=== PATIENT | male | born 1965 | race Caucasian/White ===

== ENCOUNTER 2018-10-27 09:59 | Emergency (ER) | payer BC ==
[~2018-10-27] VITALS: Ht 167.6 cm; Wt 83.9 kg
[2018-10-27 10:34] VITALS: BP 129/84
--- NOTE | 2018-10-27 10:56 | NUR ---
BIB SELF WITH C/O LEFT 1ST TOE PAIN, + SWELLING, - DISCHARGE, + REDNESS. PATIENT STATES PAIN OF 6/10 AT THIS TIME; VSS; PATIENT POSITIONED FOR COMFORT; HOB ELEVATED; BEDRAILS UP X1; BED DOWN. ER MD MADE AWARE OF PT STATUS.
--- NOTE | 2018-10-27 11:35 | NUR ---
Patient being evaluated by physician at bedside.
--- NOTE | 2018-10-27 12:16 | NUR ---
Patient discharged with v/s stable. Written and verbal after care instructions given and explained. Patient alert, oriented and verbalized understanding of instructions. Ambulatory with steady gait. All questions addressed prior to discharge. ID band removed. Patient advised to follow up with PMD. Rx of TRAMADOL, DOXYCYCLINE, MUPIROCIN given. Patient educated on indication of medication including possible reaction and side effects. Opportunity to ask questions provided and answered.
[2018-10-27 12:17] VITALS: BP 129/84
== END 2018-10-27 12:16 | disposition home or self-care (01) ==
LOC: MED 09:59
DX: L03.032 Cellulitis of left toe (principal); E11.9 Type 2 diabetes mellitus without complications; Z88.0 Allergy status to penicillin
CPT/HCPCS: 99283

== ENCOUNTER 2019-01-14 18:33 | Emergency (ER) | payer BC, OTHER ==
[~2019-01-14] VITALS: Ht 167.6 cm; Wt 80.4 kg
[2019-01-14 18:38] VITALS: BP 108/78
[2019-01-14] MEDS ORDERED: KETOROLAC 30 MG/ML VIAL IM ONE (21:00)
--- NOTE | 2019-01-14 21:23 | NUR ---
EMT TO APPLY MARIAA WRAP TO RT HAND/WRIST.
[2019-01-14 21:25] VITALS: BP 122/86
--- NOTE | 2019-01-14 21:25 | NUR ---
Patient discharged with v/s stable. Written and verbal after care instructions given and explained. Patient verbalized understanding. Ambulatory with steady gait. All questions addressed prior to discharge. Advised to follow up with PMD.
--- NOTE | 2019-01-14 21:26 | NUR ---
MARIAA WRAP PLACED ON PT R WRIST. +CSM
== END 2019-01-14 21:25 | disposition home or self-care (01) ==
LOC: MED 18:33
DX: S63.91XA Sprain of unspecified part of right wrist and hand, initial encounter (principal); S39.012A Strain of muscle, fascia and tendon of lower back, initial encounter; S29.012A Strain of muscle and tendon of back wall of thorax, initial encounter; E11.9 Type 2 diabetes mellitus without complications; Z88.0 Allergy status to penicillin; V89.2XXA Person injured in unspecified motor-vehicle accident, traffic, initial encounter; Y93.89 Activity, other specified; Y92.410 Unspecified street and highway as the place of occurrence of the external cause; Y99.8 Other external cause status
CPT/HCPCS: 73110; 96372; 99283; J1885

== ENCOUNTER 2019-07-24 23:05 | Emergency (ER) | payer OTHER ==
[~2019-07-24] VITALS: Ht 172.7 cm; Wt 75.7 kg
[2019-07-24 23:12] VITALS: BP 118/83
--- NOTE | 2019-07-24 23:28 | NUR ---
AMBULATES TO BED 11 WITH WEAK GAIT IN HUNCHED OVER POSITION. ABD GUARDING, GRIMACING NOTED. PT REFUSED TO USE WC. REPORT GIVEN TO CHAUNCEY RN. DR. NAJERA MADE AWARE OF BLOOD SUGAR.
--- NOTE | 2019-07-24 23:40 | NUR ---
53 YEAR OLD MALE COMPLAINS OF DULL ABDOMINAL PAIN 7/10 FOR THE PAST 2 DAYS. PATIENT STATES NAUSEA AND VOMITTING X 2 DAYS. PATIENT STATES UNABLE TO EAT OR DRINK, WELL WEIGHT LOSS. BOWEL SOUNDS ACTIVE X4, PAIN ON PALPATION ON UPPER ABDOMEN. PATIENT HAS HISTORY OF DIABETES, BS 492. PATIENT TAKES MEDICATIONS METFORMIN AND GLIPIZIDE. BED IN LOWEST POSITION, LOCKED, BED RAIL UPX1. AT BEDSIDE.
[2019-07-24] MEDS: ONDANSETRON 4 MG/2 ML VIAL IVP ONE (23:46)
[2019-07-24] MEDS: NACL 0.9% 1,000 ML IV ONE (23:47)
[2019-07-24] MEDS: KETOROLAC 30 MG/ML VIAL IVP ONE (23:51)
[2019-07-24 23:55] LABS: BASOPHILS # (AUTO) 0.1 K/uL (0.00-0.22); BASOPHILS % (AUTO) 1.3 % (0.0-2.0); EOSINOPHILS # (AUTO) 0.1 K/uL (0-0.4); HEMATOCRIT 51.7 % (36-52); MEAN CORPUSCULAR HEMOGLOBIN 31 pg (27-31); MEAN CORPUSCULAR HGB CONC 35 g/dL (33-37); MEAN CORPUSCULAR VOLUME 88.4 fL (80-94); MONOCYTES # (AUTO) 0.4 K/uL (0.8-1.0); MONOCYTES % (AUTO) 4.5 % (1.7-9.3); NEUTROPHILS # (AUTO) 8.2 K/uL (1.8-7.7); NEUTROPHILS % (AUTO) 83.2 % (42.2-75.2); PLATELET COUNT (AUTO) 189 K/uL (140-450); RED BLOOD CELL COUNT(AUTO) 5.85 MIL/uL (4.20-6.10); RED CELL DISTRIBUTION WIDTH 12.7 % (11.6-13.7); WHITE BLOOD COUNT (AUTO) 9.8 K/uL (4.8-10.8)
[2019-07-25 00:09] LABS: ANION GAP 12.5 (8-16); CARBON DIOXIDE 28.9 mmol/L (21-32); POTASSIUM 4.4 mmol/L (3.5-5.1); TOTAL BILIRUBIN 0.8 mg/dL (0.0-1.0)
--- NOTE | 2019-07-25 00:15 | NUR ---
PATIENT IS STILL IN PAIN AND NAUSEA AFTER MEDICATION ADMINISTRATION PREVIOUSLY, DR NAJERA MADE AWARE. PATIENT IS ALERT AND ORIENTED, BREATHING EVEN AND UNLABORED. WILL CONTINUE TO MONITOR.
[2019-07-25] MEDS: MORPHINE SULFATE 4 MG/ML SYR IVP ONE (00:43)
[2019-07-25] MEDS: INSULIN REGULAR, HUMAN 100 UNIT/ML VIAL IV ONE (00:45)
[2019-07-25] MEDS: NACL 0.9% 1,000 ML IV ONE (00:46)
[2019-07-25] MEDS: PROMETHAZINE 25 MG/ML VIAL IVP ONE (00:47)
[2019-07-25 01:21] VITALS: BP 118/83
--- NOTE | 2019-07-25 01:21 | NUR ---
Patient discharged with v/s stable. Written and verbal after care instructions ABOUT ABDOMINAL PAIN given and explained. Patient alert, oriented and verbalized understanding of instructions. Ambulatory with steady gait. All questions addressed prior to discharge. ID band removed. Patient advised to follow up with PMD. Rx of IMODIUM, CIPRO, MOTRIN, PHENERGAN, AND NORCO given. Patient educated on indication of medication including possible reaction and side effects. Opportunity to ask questions provided and answered. PATIENT HAS DRIVING HIM HOME
== END 2019-07-25 01:21 | disposition home or self-care (01) ==
LOC: MED 23:05
DX: R10.13 Epigastric pain (principal); R11.2 Nausea with vomiting, unspecified; R19.7 Diarrhea, unspecified; E11.65 Type 2 diabetes mellitus with hyperglycemia; Z88.0 Allergy status to penicillin; Z98.890 Other specified postprocedural states
CPT/HCPCS: 36415; 80053; 83690; 85025; 96361; 96374; 96375; 99283; J1815; J1885; J2270; J2405; J2550

== ENCOUNTER 2020-01-03 21:50 | Emergency (ER) | payer OTHER ==
[~2020-01-03] VITALS: Ht 172.7 cm; Wt 70.3 kg
--- NOTE | 2020-01-03 22:05 | NUR ---
EKG DONE AT BEDSIDE, SINUS TACHY AT 120. DR SWIFT MADE AWARE.
--- NOTE | 2020-01-03 22:05 | NUR ---
PT AMBULATED TO BED 11 WITH STEADY GAIT.
--- NOTE | 2020-01-03 22:05 | NUR ---
DR SWIFT AT BEDSIDE EVALUATING PT.
[2020-01-03 22:06] VITALS: BP 137/85
--- NOTE | 2020-01-03 22:09 | NUR ---
54M PRESENTS TO ER C/O STERNAL CHEST PAIN THAT RADIATES TO LT SHOULDER AND SOB THAT STARTED X 1 HOUR AGO. PT PLACED ON HAND FORMER HELPER AND PULSE OXIMETRY. NEGATIVE FOR COVID SCREENING. PMHX: DM ALLX: PCN
[2020-01-03] MEDS ORDERED: ONDANSETRON 4 MG/2 ML VIAL IVP ONE (22:10)
[2020-01-03] MEDS ORDERED: NACL 0.9% 1,000 ML IV ONE ×2 (22:10→23:25)
[2020-01-03] MEDS ORDERED: PANTOPRAZOLE 40 MG INJ VIAL IVP ONE (22:10)
[2020-01-03] MEDS ORDERED: KETOROLAC 30 MG/ML VIAL IVP ONE (22:10)
--- NOTE | 2020-01-03 22:16 | NUR ---
XRAY AT BEDSIDE.
[2020-01-03 23:04] LABS: BASOPHILS # (AUTO) 0.1 K/uL (0.00-0.22); BASOPHILS % (AUTO) 0.7 % (0.0-2.0); EOSINOPHILS # (AUTO) 0.1 K/uL (0-0.4); EOSINOPHILS % (AUTO) 0.6 % (0.0-4.0); HEMATOCRIT 46.5 % (36-52); HEMOGLOBIN 15.9 g/dL (12.0-18.0); LYMPHOCYTES % (AUTO) 6.7 % (20.5-51.1); MEAN CORPUSCULAR HEMOGLOBIN 30 pg (27-31); MEAN CORPUSCULAR HGB CONC 34 g/dL (33-37); MEAN CORPUSCULAR VOLUME 88.6 fL (80-94); MONOCYTES # (AUTO) 0.7 K/uL (0.8-1.0); MONOCYTES % (AUTO) 4.6 % (1.7-9.3); NEUTROPHILS # (AUTO) 13.7 K/uL (1.8-7.7); PLATELET COUNT (AUTO) 165 K/uL (140-450); RED BLOOD CELL COUNT(AUTO) 5.25 MIL/uL (4.20-6.10); RED CELL DISTRIBUTION WIDTH 12.3 % (11.6-13.7); WHITE BLOOD COUNT (AUTO) 15.7 K/uL (4.8-10.8)
[2020-01-03] MEDS ORDERED: MORPHINE SULFATE 2 MG/ML SYR ONE (23:17)
[2020-01-03 23:19] LABS: ALBUMIN 3.6 g/dL (3.4-5.0); ANION GAP 15.5 (8-16); CARBON DIOXIDE 28.3 mmol/L (21-32); CREATININE 1.2 mg/dL (0.6-1.3); POTASSIUM 3.8 mmol/L (3.5-5.1); TOTAL BILIRUBIN 0.4 mg/dL (0.0-1.0)
[2020-01-03 23:20] LABS: NEUTROPHILS % (AUTO) 87.4 % (42.2-75.2)
[2020-01-03] MEDS ORDERED: MORPHINE SULFATE 2 MG/ML SYR IVP ONE (23:20)
--- NOTE | 2020-01-03 23:23 | NUR ---
BP 169/91, DR SWIFT MADE AWARE
[2020-01-03 23:25] VITALS: BP 169/91
[2020-01-03] MEDS ORDERED: INSULIN REGULAR, HUMAN 100 UNIT/ML VIAL IVP ONE (23:25)
--- NOTE | 2020-01-03 23:29 | NUR ---
RBG 449. DR SWIFT MADE AWARE.
--- NOTE | 2020-01-03 23:40 | NUR ---
DR SWIFT AT BEDSIDE
--- NOTE | 2020-01-03 23:48 | NUR ---
Maribel herring in ED - 01/03/20 at 2349 by [facility] PT MEDICATED WITH INSULIN SUBQ.
--- NOTE | 2020-01-03 23:49 | NUR ---
PT MEDICATED WITH INSULIN IVP.
--- NOTE | 2020-01-04 00:43 | NUR ---
Patient discharged with v/s stable. Written and verbal after care instructions given and explained. Patient alert, oriented and verbalized understanding of instructions. Ambulatory with steady gait. All questions addressed prior to discharge. ID band removed. Patient advised to follow up with PMD regarding high blood sugar and prescription needs. Rx of tramadol given. Patient educated on indication of medication including possible reaction and side effects. Opportunity to ask questions provided and answered.
== END 2020-01-04 00:43 | disposition home or self-care (01) ==
LOC: MED 21:50
DX: R07.9 Chest pain, unspecified (principal); E11.65 Type 2 diabetes mellitus with hyperglycemia; Z88.0 Allergy status to penicillin
CPT/HCPCS: 36415; 71045; 80053; 84484; 85025; 93005; 96361; 96374; 96375; 99285; C9113; J1815; J1885; J2270; J2405; J7030; Q0092

== ENCOUNTER 2020-03-29 17:40 | Inpatient (IN) | payer OTHER ==
[~2020-03-29] VITALS: Ht 177.8 cm; Wt 69.9 kg
[2020-03-29] MEDS ORDERED: NACL 0.9% 1,000 ML IV ONE (17:50)
[2020-03-29 17:51] VITALS: BP 167/107
[2020-03-29 18:28] LABS: BASOPHILS # (AUTO) 0.1 K/uL (0.00-0.22); BASOPHILS % (AUTO) 1.1 % (0.0-2.0); EOSINOPHILS # (AUTO) 0.2 K/uL (0-0.4); HEMATOCRIT 47.7 % (36-52); HEMOGLOBIN 16.3 g/dL (12.0-18.0); LYMPHOCYTES # (AUTO) 1.7 K/uL (2.0-11.5); LYMPHOCYTES % (AUTO) 19.3 % (20.5-51.1); MEAN CORPUSCULAR HEMOGLOBIN 30 pg (27-31); MEAN CORPUSCULAR HGB CONC 34 g/dL (33-37); MEAN CORPUSCULAR VOLUME 88.5 fL (80-94); MONOCYTES # (AUTO) 0.7 K/uL (0.8-1.0); MONOCYTES % (AUTO) 7.5 % (1.7-9.3); NEUTROPHILS # (AUTO) 6.3 K/uL (1.8-7.7); NEUTROPHILS % (AUTO) 70.1 % (42.2-75.2); PLATELET COUNT (AUTO) 202 K/uL (140-450); RED BLOOD CELL COUNT(AUTO) 5.38 MIL/uL (4.20-6.10); RED CELL DISTRIBUTION WIDTH 12.8 % (11.6-13.7)
[2020-03-29 18:40] LABS: ALBUMIN 3.7 g/dL (3.4-5.0); ANION GAP 15.9 (8-16); CARBON DIOXIDE 25.5 mmol/L (21-32); CREATININE 1.3 mg/dL (0.6-1.3); POTASSIUM 4.4 mmol/L (3.5-5.1); TOTAL BILIRUBIN 0.4 mg/dL (0.0-1.0)
[2020-03-29] MEDS ORDERED: INSULIN REGULAR, HUMAN 100 UNIT/ML VIAL IVP ONE (18:40)
[2020-03-29] MEDS ORDERED: METF-1022 PO (19:20)
[2020-03-29] MEDS ORDERED: GLIP5TER PO (19:20)
[2020-03-29] MEDS ORDERED: MECLIZINE 25 MG TAB PO PRN (19:30)
[2020-03-29] MEDS ORDERED: KETOROLAC 30 MG/ML VIAL IVP ONE (19:30)
[2020-03-29] MEDS ORDERED: guaiFENesin DM 200/20 MG-10 ML 10 ML UDC PO PRN (19:30)
[2020-03-29] MEDS ORDERED: DOCUSATE SODIUM 100 MG GELCAP PO PRN (19:30)
[2020-03-29] MEDS ORDERED: POTASSIUM CHLORIDE 10 MEQ TABER PO PRN (19:30)
[2020-03-29] MEDS ORDERED: ZOLPIDEM 5 MG TAB PO PRN (19:30)
[2020-03-29] MEDS ORDERED: DEXTROSE 50% 50 ML SYR IVP PRN (19:30)
[2020-03-29] MEDS ORDERED: PANTOPRAZOLE 40 MG INJ VIAL IVP ONE (19:30)
[2020-03-29] MEDS ORDERED: ACETAMINOPHEN 325 MG TAB PO PRN (19:30)
[2020-03-29] MEDS ORDERED: ONDANSETRON 8 MG in NACL 0.9% 50 ML IV PRN (19:30)
[2020-03-29] MEDS ORDERED: ONDANSETRON 4 MG/2 ML VIAL IM/IVP PRN (19:30)
[2020-03-29 19:57] LABS: PROTHROMBIN TIME 10.3 secs (10.8-13.4)
[2020-03-29 20:08] LABS: CHOL/HDL RATIO 6.4 (1-4.5); FREE T4 (FREE THYROXINE) 1.25 ng/dL (0.76-1.46); MAGNESIUM 1.8 mg/dL (1.8-2.4); PHOSPHORUS 3.1 mg/dL (2.5-4.9); THYROID STIMULATING HORMONE 2.01 uIU/mL (0.34-3.74)
[2020-03-29 20:09] VITALS: BP 121/89
[2020-03-29] MEDS: INSULIN LANTUS 100 UNITS/ML 10 ML VIAL SUBQ SCH (20:09)
[2020-03-29 20:12] LABS: APPEARANCE,URINE CLEAR (CLEAR); BILIRUBIN,URINE NEGATIVE (NEGATIVE); BLOOD, URINE NEGATIVE (NEGATIVE); COLOR,URINE YELLOW (YELLOW); LEUKOCYTE ESTERASE ,URINE NEGATIVE (NEGATIVE); NITRITE, URINE NEGATIVE (NEGATIVE); PH,URINE 5.5 (5.0-9.0); UGLUCOSE 3+ (NEGATIVE)
[2020-03-29 20:20] LABS: BARBITURATE, URINE NEGATIVE ng/ml (NEG <=200); BENZODIAZEPINE, URINE NEGATIVE ng/mL (NEG <=200); CANNABINOID, URINE NEGATIVE ng/mL (NEG <=50); COCAINE, URINE NEGATIVE ng/mL (NEG <=300); OPIATE, URINE NEGATIVE ng/mL (NEG <=2000); PHENCYCLIDINE SCREEN,URINE NEGATIVE ng/mL (NEG <=25)
[2020-03-29] MEDS ORDERED: METFORMIN HCL 1000 MG PO SCH (21:00)
[2020-03-29] MEDS: BLOOD GLUCOSE MONITORING 1 DEV DEV FS SCH (21:42)
[2020-03-29] MEDS: NACL 0.9% 1,000 ML IV SCH (22:14)
[2020-03-29] MEDS: glipiZIDE ER 5 MG TABER PO SCH (22:20)
[2020-03-29] MEDS: metFORMIN 500 MG TAB PO SCH (22:20)
[2020-03-30] VITALS: BP 143/73
[2020-03-30] MEDS: HYDROcodone/APAP 7.5/325 MG 1 TAB PO PRN ×2 (00:41→10:25)
[2020-03-30 04:00] VITALS: BP 145/90
[2020-03-30] MEDS: NACL 0.9% 1,000 ML IV SCH ×2 (05:28→06:23)
[2020-03-30] MEDS: BLOOD GLUCOSE MONITORING 1 DEV DEV FS SCH ×4 (05:49→20:12)
[2020-03-30] MEDS: INSULIN LISPRO SLIDING SCALE 100 UNITS/ML VIAL SUBQ PRN ×2 (05:50→20:13)
[2020-03-30 08:00] VITALS: BP 150/99
[2020-03-30 08:01] LABS: BASOPHILS # (AUTO) 0.1 K/uL (0.00-0.22); BASOPHILS % (AUTO) 1.1 % (0.0-2.0); EOSINOPHILS # (AUTO) 0.2 K/uL (0-0.4); EOSINOPHILS % (AUTO) 2.4 % (0.0-4.0); HEMATOCRIT 41.9 % (36-52); HEMOGLOBIN 14.5 g/dL (12.0-18.0); LYMPHOCYTES # (AUTO) 2.3 K/uL (2.0-11.5); LYMPHOCYTES % (AUTO) 25.5 % (20.5-51.1); MEAN CORPUSCULAR HEMOGLOBIN 31 pg (27-31); MEAN CORPUSCULAR HGB CONC 35 g/dL (33-37); MEAN CORPUSCULAR VOLUME 88.5 fL (80-94); MONOCYTES # (AUTO) 0.6 K/uL (0.8-1.0); MONOCYTES % (AUTO) 6.2 % (1.7-9.3); NEUTROPHILS # (AUTO) 5.8 K/uL (1.8-7.7); NEUTROPHILS % (AUTO) 64.8 % (42.2-75.2); PLATELET COUNT (AUTO) 176 K/uL (140-450); RED BLOOD CELL COUNT(AUTO) 4.74 MIL/uL (4.20-6.10); RED CELL DISTRIBUTION WIDTH 12.9 % (11.6-13.7)
[2020-03-30 08:52] LABS: ANION GAP 15.1 (8-16); CARBON DIOXIDE 21.9 mmol/L (21-32)
[2020-03-30] MEDS: ATORVASTATIN 20 MG TAB PO SCH (09:01)
[2020-03-30] MEDS: ASPIRIN 81 MG TAB.CHEW PO SCH (09:01)
[2020-03-30] MEDS: metFORMIN 500 MG TAB PO SCH ×2 (09:01→20:10)
[2020-03-30] MEDS: glipiZIDE ER 5 MG TABER PO SCH ×2 (09:01→20:11)
[2020-03-30] MEDS: PANTOPRAZOLE 40 MG TABEC PO SCH (09:02)
[2020-03-30 12:00] VITALS: BP 147/96
[2020-03-30 16:00] VITALS: BP 154/87
[2020-03-30] MEDS: INSULIN LANTUS 100 UNITS/ML 10 ML VIAL SUBQ SCH (17:18)
[2020-03-30 20:00] VITALS: BP 121/75
[2020-03-31] VITALS: BP 137/80
[2020-03-31] MEDS: NACL 0.9% 1,000 ML IV SCH ×2 (01:28→07:36)
[2020-03-31 04:00] VITALS: BP 135/89
[2020-03-31 06:32] LABS: BASOPHILS # (AUTO) 0.1 K/uL (0.00-0.22); BASOPHILS % (AUTO) 0.8 % (0.0-2.0); EOSINOPHILS # (AUTO) 0.2 K/uL (0-0.4); EOSINOPHILS % (AUTO) 1.9 % (0.0-4.0); HEMATOCRIT 45.4 % (36-52); HEMOGLOBIN 15.7 g/dL (12.0-18.0); LYMPHOCYTES # (AUTO) 1.5 K/uL (2.0-11.5); LYMPHOCYTES % (AUTO) 17.4 % (20.5-51.1); MEAN CORPUSCULAR HEMOGLOBIN 31 pg (27-31); MEAN CORPUSCULAR HGB CONC 35 g/dL (33-37); MEAN CORPUSCULAR VOLUME 88.3 fL (80-94); MONOCYTES # (AUTO) 0.4 K/uL (0.8-1.0); MONOCYTES % (AUTO) 5.1 % (1.7-9.3); NEUTROPHILS # (AUTO) 6.6 K/uL (1.8-7.7); NEUTROPHILS % (AUTO) 74.8 % (42.2-75.2); PLATELET COUNT (AUTO) 190 K/uL (140-450); RED BLOOD CELL COUNT(AUTO) 5.14 MIL/uL (4.20-6.10); RED CELL DISTRIBUTION WIDTH 12.7 % (11.6-13.7); WHITE BLOOD COUNT (AUTO) 8.9 K/uL (4.8-10.8)
[2020-03-31] MEDS: BLOOD GLUCOSE MONITORING 1 DEV DEV FS SCH ×2 (06:36→12:01)
[2020-03-31] MEDS: INSULIN LISPRO SLIDING SCALE 100 UNITS/ML VIAL SUBQ PRN ×2 (06:37→12:04)
[2020-03-31 06:53] LABS: ANION GAP 14.2 (8-16); CARBON DIOXIDE 26.9 mmol/L (21-32); CREATININE 0.8 mg/dL (0.6-1.3); POTASSIUM 4.1 mmol/L (3.5-5.1)
[2020-03-31 08:00] VITALS: BP 136/78
[2020-03-31] MEDS: PANTOPRAZOLE 40 MG TABEC PO SCH (09:02)
[2020-03-31] MEDS: glipiZIDE ER 5 MG TABER PO SCH (09:02)
[2020-03-31] MEDS: ASPIRIN 81 MG TAB.CHEW PO SCH (09:03)
[2020-03-31] MEDS: ATORVASTATIN 20 MG TAB PO SCH (09:03)
[2020-03-31] MEDS: metFORMIN 500 MG TAB PO SCH (09:06)
[2020-03-31 10:07] LABS: T4 (THYROXINE) 7.9 ug/dL (4.5-12.0)
[2020-03-31] MEDS ORDERED: GLIP5TAB13 PO (11:23)
[2020-03-31] MEDS ORDERED: METF-1022 PO (11:23)
[2020-03-31] MEDS ORDERED: ATOR40TA PO (13:40)
[2020-03-31] MEDS ORDERED: ASPI-1822 PO (13:40)
== END 2020-03-31 15:11 | disposition home or self-care (01) | DRG 637 ==
LOC: MED 17:40 → MTU 19:14
PROVIDERS: ADMIT Family Medicine; ATTEND Family Medicine
DX: E11.00 Type 2 diabetes mellitus with hyperosmolarity without nonketotic hyperglycemic-hyperosmolar coma (NKHHC) (principal); G93.41 Metabolic encephalopathy; E87.1 Hypo-osmolality and hyponatremia; I10 Essential (primary) hypertension; E11.51 Type 2 diabetes mellitus with diabetic peripheral angiopathy without gangrene; E78.2 Mixed hyperlipidemia; E86.0 Dehydration; Z88.0 Allergy status to penicillin; Z79.899 Other long term (current) drug therapy; Z79.84 Long term (current) use of oral hypoglycemic drugs; Z91.14 Patient's other noncompliance with medication regimen; Z91.19 Patient's noncompliance with other medical treatment and regimen; Z56.0 Unemployment, unspecified
CPT/HCPCS: 36415; 70450; 71045; 80048; 80053; 80305; 81003; 82140; 82150; 82948; 83036; 83690; 83735; 83880; 84100; 84436; 84439; 84443; 84479; 84484; 85025; 85610; 85730; 87081; 93005; 93880; 93925; 93970; 96361; 96374; 96375; 97110; 97112; 97116; 97161-GP; 97530; 99285; C9113; J1815; J1885; J2405; J7030; Q0092

== ENCOUNTER 2020-06-14 15:46 | Inpatient (IN) | payer OTHER, SELFPAY ==
[~2020-06-14] VITALS: Ht 172.7 cm; Wt 68.0 kg
[~2020-06-14 15:46] MED LIST: ASPI-1822 PO; ATOR40TA PO; GLIP5TAB13 PO; METF-1022 PO
[2020-06-14 16:01] VITALS: BP 127/79
[2020-06-14] MEDS ORDERED: ONDANSETRON 4 MG/2 ML VIAL IVP STA (16:01)
[2020-06-14] MEDS ORDERED: NACL 0.9% 1,000 ML IV ONE (16:05)
[2020-06-14] MEDS ORDERED: MORPHINE SULFATE 4 MG/ML SYR IVP ONE (16:05)
--- NOTE | 2020-06-14 16:15 | NUR ---
54 YEAR OLD MALE COMPLAINS OF NAUSEA AND VOMITTING X 5 DAYS. PT DENIES BLOOD IN VOMIT. PT DENIES DIARRHEA. PT LETHARGIC AND WEAK. PT AOX4, BREATHING EVEN AND UNLABORED, SKIN WARM AND DRY. BED IN LOWEST POSITION, LOCKED, BED RAIL UPX1. PMH - DM2 ALLERGIES - PCN
[2020-06-14 16:32] LABS: BASOPHILS # (AUTO) 0.1 K/uL (0.00-0.22); BASOPHILS % (AUTO) 0.6 % (0.0-2.0); HEMATOCRIT 45.6 % (36-52); HEMOGLOBIN 15.9 g/dL (12.0-18.0); LYMPHOCYTES # (AUTO) 1.3 K/uL (2.0-11.5); LYMPHOCYTES % (AUTO) 11.3 % (20.5-51.1); MEAN CORPUSCULAR HEMOGLOBIN 30 pg (27-31); MEAN CORPUSCULAR HGB CONC 35 g/dL (33-37); MONOCYTES # (AUTO) 0.9 K/uL (0.8-1.0); MONOCYTES % (AUTO) 7.6 % (1.7-9.3); NEUTROPHILS # (AUTO) 9.5 K/uL (1.8-7.7); NEUTROPHILS % (AUTO) 80.5 % (42.2-75.2); PLATELET COUNT (AUTO) 147 K/uL (140-450); RED CELL DISTRIBUTION WIDTH 12.6 % (11.6-13.7); WHITE BLOOD COUNT (AUTO) 11.7 K/uL (4.8-10.8)
[2020-06-14 16:55] LABS: ALBUMIN 3.1 g/dL (3.4-5.0); ANION GAP 14.7 (8-16); CARBON DIOXIDE 25.4 mmol/L (21-32); CREATININE 1.1 mg/dL (0.6-1.3); POTASSIUM 4.1 mmol/L (3.5-5.1); TOTAL BILIRUBIN 0.6 mg/dL (0.0-1.0)
[2020-06-14 17:38] LABS: APPEARANCE,URINE CLEAR (CLEAR); BILIRUBIN,URINE NEGATIVE (NEGATIVE); BLOOD, URINE NEGATIVE (NEGATIVE); COLOR,URINE YELLOW (YELLOW); LEUKOCYTE ESTERASE ,URINE NEGATIVE (NEGATIVE); NITRITE, URINE NEGATIVE (NEGATIVE); UGLUCOSE 3+ (NEGATIVE)
--- NOTE | 2020-06-14 18:00 | NUR ---
PT LYING IN BED AWAKE, ALERT, RESPONSIVE. RR EVEN AND UNLABORE. WILL CONT TO MONITOR.
[2020-06-14 18:52] LABS: ANION GAP 12.7 (8-16); CARBON DIOXIDE 25.3 mmol/L (21-32)
--- NOTE | 2020-06-14 20:00 | NUR ---
PT LYING IN BED, EASY TO AROUSE. NO ACUTE DISTERESS. WILL FOLLOW UP
--- NOTE | 2020-06-14 21:33 | NUR ---
REPORT GIVEN TO ANA ROSA AT THIS TIME.
--- NOTE | 2020-06-14 21:54 | NUR ---
TRANSFERRED VIA EMT AT THIS TIME.
--- NOTE | 2020-06-14 21:54 | NUR ---
Patient will be admitted to care of NATALIIA. Admited to MED SURG. Will go to [facility] A. Belongings list completed. Report to ANA ROSA HARRISON.
[2020-06-14 21:55] VITALS: BP 157/95
--- NOTE | 2020-06-14 21:55 | NUR ---
ADMITTED A 54M FROM ER. CAME BY WHEELCHAIR DUE TO ABDOMINAL PAIN WITH NAUSEA/VOMITING X5-6 DAYS RELATED TO DX: HYPONATREMIA AND DEHYDRATION . PT IS AWAKE, ALERT AND ORIENTED X4. MED SURG PT. DENIES ANY DISCOMFORT AT THIS TIME. ORIENTED TO HOSPITAL ROUTINES . PLAN OF CARE DISCUSSED AND VERBALIZED UNDERSTANDING. HS HL ON THE RT AC G#20 .CLEAR AND PATENT. FREQ ROUNDS NEEDED. BED ON LOWEST POSITION. SIDE RAILS UP X2. CALL LIGHT AND URINAL PACED WITHIN REACH. WILL CONTINUE TO MONITOR.
[2020-06-14] MEDS: NACL 0.9% 1,000 ML IV SCH (22:40)
[2020-06-14] MEDS ORDERED: SODIUM PHOSPHATE 118 ML ENEM RC PRN (23:00)
[2020-06-14] MEDS ORDERED: DEXTROSE 50% 50 ML SYR IVP PRN (23:00)
--- NOTE | 2020-06-15 | NUR ---
VITAL SIGNS ARE WITHIN NORMAL LIMITS. ALL NEEDS MET. CALL LIGHT IS WITHIN REACH. WILL CONTINUE TO MONITOR.
[2020-06-15] MEDS ORDERED: ONDANSETRON 4 MG/2 ML VIAL IVP PRN (02:40)
--- NOTE | 2020-06-15 05:00 | NUR ---
PT IS SLEEPING COMFORTABLY IN BED WITH EYES CLOSED. CHEST RISE AND FALL NOTED. CALL LIGHT IS WITHIN REACH. WILL CONTINUE TO MONITOR.
[2020-06-15] MEDS ORDERED: MORPHINE SULFATE 2 MG/ML SYR IVP PRN ×2 (05:20→07:35)
[2020-06-15] MEDS ORDERED: HYDROcodone/APAP 5/325 MG 1 TAB TAB PO PRN ×2 (05:20→07:35)
[2020-06-15 06:03] VITALS: BP 142/85
[2020-06-15] MEDS: BLOOD GLUCOSE MONITORING 1 DEV DEV FS SCH ×4 (06:56→20:02)
[2020-06-15] MEDS: INSULIN LISPRO SLIDING SCALE 100 UNITS/ML VIAL SUBQ PRN ×2 (06:58→20:55)
[2020-06-15] MEDS: NACL 0.9% 1,000 ML IV SCH ×2 (07:10→17:18)
--- NOTE | 2020-06-15 07:10 | NUR ---
RECEIVED REPORT FROM LANDMEN NURSE FOR CONTINUITY OF CARE. A&OX4. WITH NO C/O PAIN, ON ROOM AIR, NO SOB. SKIN IS INTACT. WITH IV RAC 20G RUNNING NS AT 100 ML PER HOUR PER ORDER. PT IS AMBULATORY. SAFETY PRECAUTIONS IN PLACE. CALL LIGHT IS WITHIN REACH. WILL CONTINUE TO MONITOR
[2020-06-15] MEDS ORDERED: ACETAMINOPHEN 325 MG TAB PO PRN (07:35)
[2020-06-15] MEDS ORDERED: LORazepam 2 MG/ML VIAL IM/IVP PRN (07:35)
[2020-06-15] MEDS ORDERED: ONDANSETRON 4 MG/2 ML VIAL IM/IVP PRN (07:35)
[2020-06-15] MEDS ORDERED: ZOLPIDEM 5 MG TAB PO PRN (07:35)
[2020-06-15] MEDS ORDERED: DOCUSATE SODIUM 100 MG GELCAP PO PRN (07:35)
[2020-06-15] MEDS ORDERED: POTASSIUM CHLORIDE 10 MEQ TABER PO PRN (07:40)
[2020-06-15] MEDS ORDERED: MAG SULF 2000 MG/WATER PREMIX 50 ML IV PRN (07:40)
[2020-06-15 08:17] LABS: ANION GAP 15.7 (8-16); CARBON DIOXIDE 24.3 mmol/L (21-32); CREATININE 0.9 mg/dL (0.6-1.3)
[2020-06-15 08:21] LABS: PROTHROMBIN TIME 11.3 secs (10.8-13.4)
[2020-06-15 08:32] LABS: CHOL/HDL RATIO 4.2 (1-4.5); PHOSPHORUS 2.3 mg/dL (2.5-4.9); THYROID STIMULATING HORMONE 0.62 uIU/mL (0.34-3.74)
--- NOTE | 2020-06-15 09:15 | NUR ---
DUE MORNING MEDS GIVEN ORDERED
--- NOTE | 2020-06-15 09:30 | NUR ---
COVID ANTIGEN ANDRZEJ SPECIMEN TAKEN AND SENT TO LAB
--- NOTE | 2020-06-15 10:00 | NUR ---
PER MANFRED FROM LAB, RAPID COVID TEST IS POSITIVE. MD NOTIFIED. CHARGE NURSE NOTIFIED
[2020-06-15] MEDS ORDERED: ALBUTEROL HFA MDI 90 MCG/ACTUATION 8 GM INH PRN (10:10)
--- NOTE | 2020-06-15 10:15 | NUR ---
MOVED PT TO ROOM 113
[2020-06-15] MEDS ORDERED: AZITHROMYCIN 250 MG TAB PO SCH (10:30)
[2020-06-15] MEDS ORDERED: SODIUM PHOSPHATE 15 MMOLE in NACL 0.9% 250 ML IV SCH (10:30)
--- NOTE | 2020-06-15 10:31 | NUR ---
DISCHARGE PLANNING: THIS IS A 54 Y/O MALE PATIENT FROM HOME, WHO CAME IN DUE TO NAUSEA, VOMITING, FATIGUE. PAST MEDICAL HISTORY INCLUDE DM, HYPERLIPIDEMIA. INITIAL DIAGNOSIS OF HYPONATREMIA AND DEHYDRATION. CURRENT LABS INCLUDE WBC 11.7, H/H 15.9/45.6, NA/K 128/4.0, BUN/CREA 16.0/0.9PHOS 2.3. COVID TEST POSITIVE. ON DECADRON, ROCEPHIN, AZITHROMYCIN. ON ROOM AIR, O2 SAT 93%. PULMO, ID AND NEPHRO CONSULTS IN PLACE. DC PLAN PENDING ON PATIENT'S RESPONSE TO TREATMENT. Addendum: 06/16/20 at 1157 by Alyssia Powell CM DC PLANNING: SEEN BY WRAPPER COUNTER DR LYON CONTINUE WITH IVF ,ENCOURAGE PATIENT TO INCREASE ORAL HYDRATION, NA LEVEL 127 CONTINUE IVF, ON DECADRON FOR COVID AND PNEUMONIA. SEEN BY PULMO AND JOSE. CONTINUE CURRENT THERAPY DC PLAN TO GO HOME WHEN STABLE. CM TO FOLLOW
--- NOTE | 2020-06-15 11:00 | NUR ---
WITH EPISODE OF VOMITING AND DIARRHEA. ZOFRAN GIVEN ASA ORDERED
--- NOTE | 2020-06-15 12:00 | NUR ---
WITH TEMP OF 100.8, COOLING MEASURES RENDERED. TYLENOL PRN GIVEN
--- NOTE | 2020-06-15 12:30 | NUR ---
PER RT, O2SAT 87% ON ROOM AIR. PLACED ON 2L O2 NC. O2SAT 98%
--- NOTE | 2020-06-15 12:46 | NUR ---
PATIENT HAS BEEN SCREENED AND CATEGORIZED HIGH NUTRITION RISK. PATIENT WILL BE SEEN WITHIN 1-2 DAYS OF ADMISSION. 06/15/[address]
--- NOTE | 2020-06-15 15:30 | NUR ---
PT RESTING IN BED. NO C/O PAIN, NO SOB
[2020-06-15 16:00] VITALS: BP 143/92
--- NOTE | 2020-06-15 16:00 | NUR ---
06/15/2020 RD INITIAL ASSESSMENT COMPLETED PLEASE REFER TO NUTRITION ASSESSMENT UNDER CARE ACTIVITY FOR ESTIMATED NUTRITIONAL NEEDS. ADVANCE DIET ONCE PT ABLE TO TOLERATE PO INTAKE TO [address] TO FOLLOW-UP IN 2-3 DAYS PATIENT IS HIGH RISK. PERLA SANTIAGO, RD
[2020-06-15] MEDS: glipiZIDE 5 MG TAB PO SCH (17:18)
[2020-06-15] MEDS: metFORMIN 500 MG TAB PO SCH (17:18)
--- NOTE | 2020-06-15 17:42 | NUR ---
BLOOD SUGAR 154. COVERAGE GIVEN. NO C/O PAIN, NO SOB, O2SAT 98% ON 2L
--- NOTE | 2020-06-15 18:37 | NUR ---
PT RESTING IN BED. ABLE TO MAKE NEEDS KNOWN. RESPIRATIONS EVEN AND UNLABORED WITH NO SOB OR RESPIRATORY DISTRESS. ON 2L NC
--- NOTE | 2020-06-15 19:20 | NUR ---
RECEIVED REPORT FROM JO RNRODRÍGUEZ. PT AOX4 ON 2L NC, O2 SAT 94%. NO S/S RESPIRATORY DISTRESS. NO C/O PAIN AT THIS TIME. DENIES NAUSEA AND VOMITING. IV SITE RAC 20G, PATENT AND INTACT, INFUSING IVF ORDERED. SAFETY MEASURES IN PLACE. CALL LIGHT WITHIN REACH. WILL CONTINUE TO MONITOR
[2020-06-15] MEDS: ZINC SULF 220 MG CAP PO SCH (21:00)
[2020-06-15] MEDS ORDERED: METFORMIN HCL 1000 MG PO SCH (21:00)
--- NOTE | 2020-06-15 21:07 | NUR ---
ADMINISTERED SCHEDULED MEDS. GAVE 2 UNITS INSULIN SUBQ FOR PT BLOOD SUGAR 193 PER SLIDING SCALE. PT TOLERATED WELL. WILL CONTINUE TO MONITOR
--- NOTE | 2020-06-15 23:10 | NUR ---
PT ASLEEP IN BED. O2 SAT 97%. RESPIRATIONS EVEN AND UNLABORED. WILL CONTINUE TO MONITOR
[2020-06-16] VITALS: BP 123/78
--- NOTE | 2020-06-16 01:20 | NUR ---
PT ASLEEP IN BED. O2 SAT 94%. NO DISTRESS NOTED. WILL CONTINUE TO MONITOR
--- NOTE | 2020-06-16 03:25 | NUR ---
PT ASLEEP IN BED COMFORTABLY. NO DISTRESS NOTED. WILL CONTINUE TO MONITOR
[2020-06-16] MEDS: NACL 0.9% 1,000 ML IV SCH ×3 (03:32→23:10)
[2020-06-16] MEDS ORDERED: ACETAMINOPHEN 325 MG TAB PO PRN (05:10)
--- NOTE | 2020-06-16 06:00 | NUR ---
PT VOMITING TO BAG, REFUSED PRN ZOFRAN. NO C/O PAIN, NO SOB. WILL CONTINUE TO MONITOR
[2020-06-16] MEDS: glipiZIDE 5 MG TAB PO SCH ×2 (06:07→16:20)
[2020-06-16] MEDS: INSULIN LISPRO SLIDING SCALE 100 UNITS/ML VIAL SUBQ PRN ×4 (06:21→21:33)
[2020-06-16] MEDS: BLOOD GLUCOSE MONITORING 1 DEV DEV FS SCH ×4 (06:36→21:30)
--- NOTE | 2020-06-16 07:09 | NUR ---
ENDORSED PT TO DAY RN FOR CONTINUITY OF CARE. PT IS IN STABLE CONDITION.
--- NOTE | 2020-06-16 07:10 | NUR ---
RECEIVED REPORT FROM NIGHT NURSE PATIENT IS AAOX4 ON ROOM AIR, [facility] DIET, AMBULATORY WITH ASSIST, SKIN INTACT AND HAD A DIARRHEA LAST NIGHT, STILL WITH NAUSEA AND VOMITING NOTED BY NIGHT NURSE.IV SITES INTACT ON RIGHT AC, SAFETY MEASURES IN PLACE AND CALL LIGHT WITHIN REACH. WILL CONTINUE TO MONITOR.
[2020-06-16 07:12] LABS: BASOPHILS % (AUTO) 0.4 % (0.0-2.0); HEMOGLOBIN 14.8 g/dL (12.0-18.0); LYMPHOCYTES # (AUTO) 0.9 K/uL (2.0-11.5); LYMPHOCYTES % (AUTO) 9.1 % (20.5-51.1); MEAN CORPUSCULAR HEMOGLOBIN 30 pg (27-31); MEAN CORPUSCULAR HGB CONC 35 g/dL (33-37); MEAN CORPUSCULAR VOLUME 86.4 fL (80-94); MONOCYTES # (AUTO) 0.8 K/uL (0.8-1.0); MONOCYTES % (AUTO) 8.5 % (1.7-9.3); PLATELET COUNT (AUTO) 149 K/uL (140-450); RED BLOOD CELL COUNT(AUTO) 4.87 MIL/uL (4.20-6.10); RED CELL DISTRIBUTION WIDTH 12.3 % (11.6-13.7); WHITE BLOOD COUNT (AUTO) 9.8 K/uL (4.8-10.8)
[2020-06-16 07:14] LABS: ALBUMIN 2.7 g/dL (3.4-5.0); ANION GAP 14.5 (8-16); CARBON DIOXIDE 24.5 mmol/L (21-32); CREATININE 0.8 mg/dL (0.6-1.3); MAGNESIUM 1.8 mg/dL (1.8-2.4); PHOSPHORUS 2.8 mg/dL (2.5-4.9); TOTAL BILIRUBIN 0.6 mg/dL (0.0-1.0)
[2020-06-16 08:00] VITALS: BP 133/77
[2020-06-16 08:09] LABS: T4 (THYROXINE) 8.5 ug/dL (4.5-12.0)
--- NOTE | 2020-06-16 08:33 | NUR ---
Rec'd pt on RA, SPO2 96%, no signs of resp distress noted at this time, pt awake. Will continue to monitor.
[2020-06-16] MEDS: VITAMIN D 400 IU TAB PO SCH (08:49)
[2020-06-16] MEDS: ASCORBIC ACID 500 MG TAB PO SCH (08:50)
[2020-06-16] MEDS: metFORMIN 500 MG TAB PO SCH ×2 (08:50→16:21)
[2020-06-16] MEDS: ZINC SULF 220 MG CAP PO SCH ×2 (08:50→21:06)
[2020-06-16] MEDS: ATORVASTATIN 20 MG TAB PO SCH (08:51)
[2020-06-16] MEDS: ASPIRIN 81 MG TAB.CHEW PO SCH (08:51)
[2020-06-16] MEDS: DEXAMETHASONE 10 MG/ML VIAL IVP SCH (08:54)
[2020-06-16] MEDS ORDERED: AZITHROMYCIN 250 MG TAB PO SCH (09:00)
--- NOTE | 2020-06-16 09:00 | NUR ---
MEDICATION DUE GIVEN AND CHECK VITAL SIGNS PRIOR TO MEDICATION BP 133/77 IN 114.NO SIGNS OF DISTRESS NOTED AND DENIES PAIN. SAFETY MEASURES IN PLACE AND CALL LIGHT WITHIN REACH. WILL CONTINUE TO MONITOR.
--- NOTE | 2020-06-16 11:30 | NUR ---
BLOOD SUGAR MONITORING 167 MG/DL AND CHECK VITAL SIGNS. PATIENT IS SLEEPING NO DISTRESS NOTED.
--- NOTE | 2020-06-16 11:44 | NUR ---
SOCIAL WORK NOTE: Patient's Orientation Unable To Assess Information Provided By FREDI RYAN - Comments SW WAS UNABLE TO MEET PATIENT AT BEDSIDE. SW CALLED PATIENT'S ROOM PHONE AND PATIENT DID NOT ANSWER. SW CONTACTED PATIENT'S TO COMPLETE ASSESSMENT. Vortex Operator, Realtionship and Phone Number FREDI SANCHEZ [phone] [facility] Power of [place] Se[employer] No Does Patient Have a POLST No Identifying Problems No Social Work Triggers Is A Social Work Consult Needed No Mandate Report Filed No Explanation Of Identifying Problems PATIENT IS A 54-YEAR-OLD MALE ADMITTED FOR HYPONATREMIA AND DEHYDRATION. PATIENT HAS PMHX OF DIABETES AND HYPERTENSION. Admitted From Home Pre-Admission Level Of Functioning Status Independent/Ambulatory Prior Resources/Services Used In Last 12 Months No Prior Resources Used Prior DME No Prior DME Used Dialysis Comments N/A Living Situation Lives With Family House Patient Had Caregiver No Home Support No Caregiver Issues Financial Issues No Known Financial Issue Referral To The Financial Counselor Needed No Factors/Needs No D/C Needs Identified Explanation And Or Other Factors Affecting/Possible DC Needs PATIENT'S STATED THAT SHE WILL COORDINATE TRANSPORTATION AT TIME OF DISCHARGE. Pt/Rep Participated In Discharge Plan Yes Patient/Family Agress With Discharge Plan Yes Discharge Plan Comments TENTATIVE DISCHARGE PLAN IS FOR PATIENT TO RETURN HOME. DC Plan Status Initiated
--- NOTE | 2020-06-16 13:00 | NUR ---
MADE ROUNDS AT THIS TIME PATIENT IS SLEEPING AND DON"T WANT TO BE DISTURBED.'
[2020-06-16 16:00] VITALS: BP 123/73
--- NOTE | 2020-06-16 17:21 | NUR ---
PATIENT IS COVID 19 PCR IS POSITIVE.
--- NOTE | 2020-06-16 19:22 | NUR ---
ENDORSED TO NIGHT NURSE FOR CONTINUITY OF CARE. PT IS STABLE.
--- NOTE | 2020-06-16 19:25 | NUR ---
RECEIVED REPORT FROM DAY RN, PT IS AAOX4, RESTING COMFORTABLY IN BED, NO ACUTE DISTRESS, NO SOB NOTED. DENIES PAIN OR DISCOMFORT AT THIS TIME. PT HAS IV LINE ON RAC 20G, PATENT AND INTACT, INFUSING IVF NS @ 100CC/HR. BOWEL SOUND PRESENT X4 QUADRANTS. NO C/O NAUSEA/VOMITING AT THIS TIME. SKIN DRY AND WARM TO TOUCH. SAFETY MEASURES IN PLACED. CALL LIGHT WITHIN REACH. WILL CONTINUE TO MONITOR.
--- NOTE | 2020-06-16 19:45 | NUR ---
RECEIVED REPORT FROM AM SHIFT. PT SEEN AND ASSESSED. PT IS ON ROOM AIR WITH SPO2 OF 97%. . AUSCULTATION REVEALS BILATERAL RALES BREATH SOUNDS. PT IS IN NO APPARENT RESPIRATORY DISTRESS AT THIS TIME. PRN TX NOT INDICATED AT THIS TIME. WILL CONTINUE TO MONITOR PT.
--- NOTE | 2020-06-16 21:30 | NUR ---
DUE MEDS GIVEN ORDERED, TOLERATED WELL. BLOOD SUGAR CHECKED-272 MG/DL GIVEN 6UNITS OF INSULIN PER ORDER. WILL CONTINUE TO MONITOR.
--- NOTE | 2020-06-16 23:30 | NUR ---
FREQ ROUND DONE, PT IS ASLEEP IN BED COMFORTABLY. NO APPARENT DISTRESS, VS STABLE. AFEBRILE. SATTING 96% ON ROOM AIR. SAFETY MEASUIRES IN PLACED. CALL LIGHT WITHIN REACH. WILL CONTINUE TO MONITOR.
[2020-06-17] VITALS: BP 136/89
--- NOTE | 2020-06-17 01:30 | NUR ---
CHECKED ON PT. SLEEPING COMFORTABLY IN BED. NO APPARENT DISTRESS, NO SOB. SAFETY MEASURES IN PLACED. WILL CONTINUE TO MONITOR.
--- NOTE | 2020-06-17 03:30 | NUR ---
PT ON BED RESTING, ASKED NURSE TO BRING HIM SOME ICED WATER. KEPT COMFORTABLE. SAFETY MEASURES IN PLACED. CALL LIGHT WITHIN REACH. WILL CONTINUE TO MONITOR.
--- NOTE | 2020-06-17 05:30 | NUR ---
PT IS ASLEEP IN BED, REMAINS IN STABLE CONDITION WITHOUT ANY DISTRESS OR SOB NOTED.
[2020-06-17] MEDS: BLOOD GLUCOSE MONITORING 1 DEV DEV FS SCH ×2 (06:50→12:18)
[2020-06-17] MEDS: glipiZIDE 5 MG TAB PO SCH (06:50)
--- NOTE | 2020-06-17 06:50 | NUR ---
BLOOD SUGAR CHECKED-135, NO INSULIN COVERAGE NEEDED. WILL CONTINUE TO MONITOR.
--- NOTE | 2020-06-17 07:20 | NUR ---
ENDORSED TO AM NURSE IN STABLE CONDITION FOR CONTINUITY OF CARE.
--- NOTE | 2020-06-17 07:21 | NUR ---
RECEIVED ENDORSEMENT FROM REAL ESTATE OPERATIONS MANAGER, AWAKE, ALERT, ORIENTEDX4, BREATHING SPONTANEOUSLY AT ROOM AIR, NON LABORED NOTED. WITH ONGOING IV FLUID WITH 0.9%NS AT 60ML/HOUR INFUSING AT RT AC G20IV CANNULA NOTED. ON DROPLET ISOLATION, DX WITH COVID POSITIVE. SAFETY MEASURES IN PLACE AND CONTINUE MONITOR.
[2020-06-17 07:25] LABS: BASOPHILS % (AUTO) 0.1 % (0.0-2.0); HEMATOCRIT 40.8 % (36-52); HEMOGLOBIN 14.5 g/dL (12.0-18.0); LYMPHOCYTES # (AUTO) 0.6 K/uL (2.0-11.5); LYMPHOCYTES % (AUTO) 4.9 % (20.5-51.1); MEAN CORPUSCULAR HEMOGLOBIN 30 pg (27-31); MEAN CORPUSCULAR HGB CONC 36 g/dL (33-37); MONOCYTES # (AUTO) 1.1 K/uL (0.8-1.0); MONOCYTES % (AUTO) 8.8 % (1.7-9.3); NEUTROPHILS # (AUTO) 10.8 K/uL (1.8-7.7); NEUTROPHILS % (AUTO) 86.2 % (42.2-75.2); PLATELET COUNT (AUTO) 175 K/uL (140-450); RED CELL DISTRIBUTION WIDTH 12.4 % (11.6-13.7); WHITE BLOOD COUNT (AUTO) 12.5 K/uL (4.8-10.8)
[2020-06-17 08:00] VITALS: BP 143/98
[2020-06-17] MEDS: metFORMIN 500 MG TAB PO SCH (08:24)
[2020-06-17] MEDS: DEXAMETHASONE 10 MG/ML VIAL IVP SCH (08:25)
[2020-06-17] MEDS: VITAMIN D 400 IU TAB PO SCH (08:25)
[2020-06-17] MEDS: ASPIRIN 81 MG TAB.CHEW PO SCH (08:25)
[2020-06-17] MEDS: ZINC SULF 220 MG CAP PO SCH (08:26)
[2020-06-17] MEDS: ATORVASTATIN 20 MG TAB PO SCH (08:26)
[2020-06-17] MEDS: ASCORBIC ACID 500 MG TAB PO SCH (08:26)
[2020-06-17] MEDS: NACL 0.9% 1,000 ML IV SCH (08:31)
--- NOTE | 2020-06-17 08:55 | NUR ---
IV CANNULA NOTED OUT VEIN, NO BLEEDING NOTED. IV CANNULA G20 INSERTED AT RT HAND. ASYMPTOMATIC AND PATENT NOTED. DUE MEDICATION GIVEN.
--- NOTE | 2020-06-17 10:33 | NUR ---
AWAKE AND WATCHING TV, NOT IN DISTRESS NOTED
[2020-06-17 10:43] LABS: ALBUMIN 2.5 g/dL (3.4-5.0); CARBON DIOXIDE 20.9 mmol/L (21-32); CREATININE 0.7 mg/dL (0.6-1.3); PHOSPHORUS 1.7 mg/dL (2.5-4.9); POTASSIUM 3.9 mmol/L (3.5-5.1); TOTAL BILIRUBIN 0.5 mg/dL (0.0-1.0)
[2020-06-17 10:51] LABS: MAGNESIUM 1.7 mg/dL (1.8-2.4)
[2020-06-17] MEDS: INSULIN LISPRO SLIDING SCALE 100 UNITS/ML VIAL SUBQ PRN (12:18)
--- NOTE | 2020-06-17 12:18 | NUR ---
GLUCOSE-268, HUMALOG 6UNITS SUBQ PER SLIDING SCALE GIVEN. VITAL SIGNS TAKEN AND RECORDED, STABLE
[2020-06-17] MEDS ORDERED: AZIT250T3 PO (12:44)
[2020-06-17] MEDS ORDERED: DEC4 PO (12:44)
[2020-06-17 13:33] VITALS: BP 143/80
--- NOTE | 2020-06-17 14:05 | NUR ---
DISCHARGE PACKET INSTRUCTION GIVEN, VERBALIZED UNDERSTANDING. IV CANNULA REMOVED AND DRESSING APPLIED, NO BLEEDING NOTED
--- NOTE | 2020-06-17 15:06 | NUR ---
DISCHARGED IN STABLE CONDITION PER WHEELCHAIR ACCOMPANIED TO HOSPITAL ENTRANCE AND REGIONAL BUSINESS MANAGER BY .
== END 2020-06-17 15:05 | disposition home or self-care (01) | DRG 177 ==
LOC: MED 15:46 → MTU 21:23
DX: U07.1 COVID-19 (principal); J12.89 Other viral pneumonia; J96.01 Acute respiratory failure with hypoxia; A41.89 Other specified sepsis; G93.41 Metabolic encephalopathy; E43 Unspecified severe protein-calorie malnutrition; E87.1 Hypo-osmolality and hyponatremia; E78.00 Pure hypercholesterolemia, unspecified; E78.5 Hyperlipidemia, unspecified; E86.0 Dehydration; E86.1 Hypovolemia; I10 Essential (primary) hypertension; E87.8 Other disorders of electrolyte and fluid balance, not elsewhere classified; E11.65 Type 2 diabetes mellitus with hyperglycemia; E83.39 Other disorders of phosphorus metabolism; I25.10 Atherosclerotic heart disease of native coronary artery without angina pectoris; I45.10 Unspecified right bundle-branch block; Z88.0 Allergy status to penicillin; Z79.82 Long term (current) use of aspirin; Z79.84 Long term (current) use of oral hypoglycemic drugs; Z79.899 Other long term (current) drug therapy; Z68.22 Body mass index [BMI] 22.0-22.9, adult
CPT/HCPCS: 36415; 36600; 70450; 71045; 74018; 80048; 80053; 81003; 82150; 82803; 82948; 83036; 83605; 83615; 83690; 83735; 83880; 84100; 84134; 84436; 84443; 84484; 85025; 85379; 85610; 85651; 85730; 86140; 87081; 93005; 96361; 96374; 96375; 97112; 97116; 97161-GP; 99291; J0696; J1100; J1644; J2270; J2405; J7030; J7060; Q0092; U0003

== ENCOUNTER 2023-02-15 05:24 | Inpatient (IN) | payer OTHER ==
[~2023-02-15] VITALS: Ht 172.7 cm; Wt 63.5 kg
[2023-02-15] VITALS (7 sets, daily range): BP systolic 84–129; BP diastolic 47–78; PULSE 91–110; RESP 16–20; TEMP 97.9–99.4; O2SAT 93–96
[~2023-02-15 05:24] MED LIST changes: +AZIT250T3 PO; +DEC4 PO; -METF-1022 PO; +METF-1253 PO
--- NOTE | 2023-02-15 05:30 | NUR ---
to bed via w/c
[2023-02-15] MEDS ORDERED: NACL 0.9% 1,000 ML IV ONE ×2 (05:50→07:20)
--- NOTE | 2023-02-15 05:50 | NUR ---
57 Y/O M FROM HOME PRESENTS WITH HEMATEMESIS X4DAYS. PT STATED HE HASNT BEEN ABLE TO KEEP ANY FOOD DOWN. PT IS A&OX4, SKIN INTACT, WHEEL CHAIR ASSIST. PT DENIES ANY HEADACHES OR ABD PAIN. PMH- DM, HTN ALLERGIES-PENICILLINS
--- NOTE | 2023-02-15 05:58 | NUR ---
LABS COLLECTED AND SENT TO LAB ALONG WITH [facility]
[2023-02-15] MEDS ORDERED: PANTOPRAZOLE 40 MG INJ VIAL IVP ONE (06:15)
--- NOTE | 2023-02-15 06:16 | NUR ---
Dr. Jarvis examining patient.
[2023-02-15 06:48] LABS: BASOPHILS # (AUTO) 0.1 K/uL (0.00-0.22); BASOPHILS % (AUTO) 0.4 % (0.0-2.0); HEMATOCRIT 41.2 % (36-52); HEMOGLOBIN 14.1 g/dL (12.0-18.0); LYMPHOCYTES # (AUTO) 1.1 K/uL (2.0-11.5); LYMPHOCYTES % (AUTO) 6.1 % (20.5-51.1); MEAN CORPUSCULAR HEMOGLOBIN 29 pg (27-31); MEAN CORPUSCULAR HGB CONC 34 g/dL (33-37); MONOCYTES # (AUTO) 1.2 K/uL (0.8-1.0); MONOCYTES % (AUTO) 6.4 % (1.7-9.3); NEUTROPHILS % (AUTO) 87.1 % (42.2-75.2); PLATELET COUNT (AUTO) 136 K/uL (140-450); RED BLOOD CELL COUNT(AUTO) 4.85 MIL/uL (4.20-6.10); WHITE BLOOD COUNT (AUTO) 18.4 K/uL (4.8-10.8)
[2023-02-15 07:01] LABS: ALBUMIN 3.2 g/dL (3.4-5.0); ANION GAP 16.4 (8-16); ASPARTATE AMINOTRANSFERASE 23 U/L (15-37); CARBON DIOXIDE 26.3 mmol/L (21-32); CHLORIDE 90 mmol/L (98-107); GFR ARICAN-AMERICAN 99 mL/min (>90); GLUCOSE 379 mg/dL (74-106); POTASSIUM 4.7 mmol/L (3.5-5.1); SODIUM SERUM 128 mmol/L (136-145); TOTAL BILIRUBIN 0.6 mg/dL (0.0-1.0); UREA NITROGEN, BLOOD 26 mg/dL (7-18)
--- NOTE | 2023-02-15 07:08 | NUR ---
PT TAKEN TO CT
--- NOTE | 2023-02-15 07:19 | NUR ---
Pt report given to MAGDALENO SKINNER. Transfer of care at this time.
--- NOTE | 2023-02-15 07:20 | NUR ---
REPORT RECEIVED FROM JENNIFER SKINNER. ASSUMED CARE AT THIS TIME
[2023-02-15] MEDS ORDERED: cefTRIAXone 1,000 MG VIAL ONE (07:37)
[2023-02-15 07:57] LABS: APPEARANCE,URINE CLEAR (CLEAR); BILIRUBIN,URINE NEGATIVE (NEGATIVE); BLOOD, URINE 3+ (NEGATIVE); COLOR,URINE YELLOW (YELLOW); LEUKOCYTE ESTERASE ,URINE NEGATIVE (NEGATIVE); NITRITE, URINE NEGATIVE (NEGATIVE); UGLUCOSE 3+ (NEGATIVE)
[2023-02-15 08:19] LABS: RBC,URINE 11-20 (MOD) /HPF (0-5)
[2023-02-15] MEDS ORDERED: metroNIDAZOLE 500 MG/NS PREMIX 100 ML IV ONE (08:40)
[2023-02-15] MEDS ORDERED: HYDROcodone/APAP 5/325 MG 1 TAB TAB PO PRN (09:20)
[2023-02-15] MEDS ORDERED: MORPHINE SULFATE 2 MG/ML SYR IVP PRN (09:20)
--- NOTE | 2023-02-15 09:44 | NUR ---
pt w/ new nausea onset. no prn orders. MD LYNNE MADE AWARE Addendum: 02/15/23 at 1004 by PHSEP WRITTEN ORDER RECEIVED FROM MD LYNNE. ORDERS CARRIED OUT ZOFRAN 4MG IVP Q6H PRN
[2023-02-15] MEDS ORDERED: ATOR20TA40 PO (09:49)
[2023-02-15] MEDS ORDERED: GABA300C55 PO (09:49)
[2023-02-15] MEDS ORDERED: LANTUS SUBQ (09:49)
[2023-02-15] MEDS: NACL 0.9% 1,000 ML IV SCH ×6 (09:59→23:07)
[2023-02-15] MEDS ORDERED: ONDANSETRON 4 MG/2 ML VIAL IVP PRN (10:05)
--- NOTE | 2023-02-15 10:09 | NUR ---
MD LYNNE AT BEDSIDE FOR EVALUATION
--- NOTE | 2023-02-15 11:22 | NUR ---
Patient will be admitted to care of MD LYNNE. Admited to TELE. Will go to room 120A. Belongings list completed. Report to KRYSTIAN SKINNER.
[2023-02-15] MEDS ORDERED: ONDANSETRON 4 MG ODT SL PRN (11:55)
--- NOTE | 2023-02-15 11:55 | NUR ---
The patient's care was reviewed and supervised by ED Agency Nurse 9, RN, RN.
--- NOTE | 2023-02-15 12:00 | NUR ---
RECEIVE ER NURSE REPORT THAT 57YRS OLD PATIENT COME FROM HOME FOR HEMATEMESIS X 4 DAYS W/ NAUSEA/VOMITING. PATIENT ADMIT UNDER CARE OF DR. MORENO FOR COFFEE GROUND EMESIS WITH HX OF DM & HLD. PATIENT ALLERGY TO PENICILLINS, FULL CODE, AND AMBULATORY W/ WHEELCHAIR IN HOME. FLAGYL & ROCEPHIN GIVE IN ER. ADMITTING EKG STRIP SHOWS TACHYCARDIA W/ BBB. VITAL WITHIN PATIENT'S BASE LINE (T-P-R: 99.4-107-20, BP: 100/78, O2 SAT: 95% ON 1 LITER VIA NC. BODY CHECK NOTED THAT PATIENT HAS R. BKA. PIV SITE AT LAC INFUSING NS @125ML/HR. PATIENT'S ACCUCH 322 AT 1200. WILL CONTINUE TO MONITOR
[2023-02-15] MEDS: METOCLOPRAMIDE 10 MG/2 ML INJ VIAL IVP SCH ×2 (12:15→17:20)
[2023-02-15] MEDS: SENNA 8.6 MG TAB PO SCH ×2 (12:16→17:19)
[2023-02-15] MEDS ORDERED: DEXTROSE 50% 50 ML SYR IVP PRN (12:30)
[2023-02-15] MEDS: ACETAMINOPHEN 325 MG TAB PO PRN (14:11)
--- NOTE | 2023-02-15 15:39 | NUR ---
PATIENT HAS BEEN SCREENED AND CATEGORIZED HIGH NUTRITION RISK. PATIENT WILL BE SEEN WITHIN 1-2 DAYS OF ADMISSION. 02/16/23-02/17/[address]
[2023-02-15] MEDS: BLOOD GLUCOSE MONITORING 1 DEV DEV FS SCH ×2 (16:55→21:36)
[2023-02-15] MEDS: INSULIN LISPRO SLIDING SCALE 100 UNITS/ML VIAL SUBQ PRN (16:59)
--- NOTE | 2023-02-15 20:05 | NUR ---
ENDORSE PATIENT TO PM SHIFT NURSE WHILE THAT PATIENT IS SLEEPING. IV NS INFUSING AT 125 VIA LAC. NO ACUTE DISTRESS NOTED
--- NOTE | 2023-02-15 20:06 | NUR ---
RECD. RESTING IN BED, SLEEPING. WAKEN UP, VERY DROWSY BUT ABLE TO ANSWER QUESTIONS. ON 02 AT 1 LITER VIA N/C, 02 SATURATION AT 94%. RESPIRATION EVEN AND UNLABORED. IV OF NS INFUSING AT 100 ML/HR, LEFT AC G20. WITH LEFT BKA. PATIENT IS FALL RISK. BED IN THE LOWEST POSITION SIDE RAILS UP. CALL LIGHT IN REACH. DENIES PAIN 0/10.
--- NOTE | 2023-02-15 20:50 | NUR ---
INFORMED DR. GILMORE, PATIENT BP IS IN THE LOW SIDE , 84/56, 84/47, HR - 88. BLOOD SUGAR IS 191, IF IT IS OK NOT TO GIVE COVERAGE BECAUSE PATIENT IS NPO. AGREED NOT TO GIVE INSULIN COVERAGE. ORDERED NS 1 LITER BOLUS AND CHECK BP.
[2023-02-15] MEDS: PANTOPRAZOLE 40 MG INJ VIAL IVP SCH (22:15)
[2023-02-15] MEDS: bisacodyL 10 MG SUPP RC SCH (22:21)
--- NOTE | 2023-02-15 22:35 | NUR ---
IVF BOLUS COMPLETED PER MD ORDER. NADR. TOLERATED WELL. VS TAKEN. BP: 121/76, HR: 77, O2: 98% ON ROOM AIR. DENIES PAIN. PT REQUESTED TO TAKE NC OFF AND STATED, "IT MAKES ME FEEL UNCOMFORTABLE." PT IS ABLE TO TOLERATE ROOM AIR. EDUCATED PT THE NEED TO PUT NC BACK ON ONCE O2 SATURATION DECREASES. PT VERBALIZED UNDERSTANDING. RESPIRATIONS EVEN AND UNLABORED WITH NO APPARENT S/SX OF ACUTE DISTRESS. CLEANED AND CHANGED PATIENT. TOLERATED WELL. WHITE COMMUNICATION BOARD UPDATED. ALL SAFETY MEASURES IN PLACE. CALL LIGHT WITHIN REACH. ENCOURAGED PT TO CALL FOR ANY NEEDS/ASSISTANCE. BED IN LOW/LOCKED POSITION. SIDE RAILS X2 UP. WILL CONTINUE TO MONITOR.
[2023-02-16] VITALS (7 sets, daily range): BP systolic 114–143; BP diastolic 66–84; PULSE 91–102; RESP 16–19; TEMP 98–99.5; O2SAT 93–99
[2023-02-16] MEDS: METOCLOPRAMIDE 10 MG/2 ML INJ VIAL IVP SCH ×4 (00:38→19:05)
--- NOTE | 2023-02-16 00:40 | NUR ---
PATIENT IS AWAKE AND WATCHING TELEVISION. VERBALIZED NO NEEDS AT THIS TIME. DENIES PAIN. RESPIRATIONS EVEN AND UNLABORED WITH NO APPARENT S/SX OF ACUTE DISTRESS. WHITE COMMUNICATION BOARD UPDATED. ALL SAFETY MEASURES IN PLACE. CALL LIGHT WITHIN REACH. BED IN LOW/LOCKED POSITION. WILL CONTINUE TO MONITOR.
[2023-02-16] MEDS: NACL 0.9% 1,000 ML IV SCH ×3 (01:20→17:20)
--- NOTE | 2023-02-16 02:00 | NUR ---
HAD MODERATE LOOSE BM BROWN IN COLOR. CLEANSED AND MADE COMFORTABLE IN BED WITH PILLOWS. REPOSITIONED IN BED WITH HEAD SLIGHTLY ELEVATED PER PATIENT CHOICE.
--- NOTE | 2023-02-16 05:30 | NUR ---
HAD ANOTHER PASTY BROWN BM, MODERATE AMOUNT. CLEANSED, DIAPER AND GOWN CHANGED. REPOSITION IN BED FOR COMFORT. COMFORTABLE IN BED, LISTENING TO MUSIC.
[2023-02-16] MEDS: BLOOD GLUCOSE MONITORING 1 DEV DEV FS SCH ×4 (06:31→20:27)
--- NOTE | 2023-02-16 07:42 | NUR ---
Patient's Plan of Care was discussed and reviewed with WATCH CRYSTAL CUTTER:
--- NOTE | 2023-02-16 08:53 | NUR ---
FNS CONSULT FOR PATIENT FOR VOMITING X3 DAYS WAS RECEIVED ON 02/16/23. PATIENT WILL BE SEEN WITHIN 1-2 DAYS OF CONSULT. PAVAN B[address] RD
[2023-02-16] MEDS: PANTOPRAZOLE 40 MG INJ VIAL IVP SCH (09:35)
[2023-02-16] MEDS: SENNA 8.6 MG TAB PO SCH ×3 (09:46→17:54)
[2023-02-16 10:35] LABS: ALBUMIN 2.4 g/dL (3.4-5.0); ANION GAP 13.5 (8-16); CREATININE 0.7 mg/dL (0.6-1.3); POTASSIUM 3.5 mmol/L (3.5-5.1); TOTAL BILIRUBIN 0.4 mg/dL (0.0-1.0)
--- NOTE | 2023-02-16 10:50 | NUR ---
DC PLANNIN YRS OLD MALE PATIENT WAS ADMITTED FROM HOME WITH A DX OF COFFEE GROUND EMESIS. PATIENT HAS A HX OF HTN, DM, HLD, CAD AND RT BKA. CXR NORMAL CHEST , CT ABD/PELVIS SHOWED RELATIVELY PROMINENT STOOL IN THE RECTUM WITH MILD CIRCUMFERENTIAL WALL THICKENING AND FAT STRANDING. ADMINISTERED IVF, IV ABX ROCEPHIN AND ZITHROMAX PO. URINE CULTURE PENDING. SEEN BY DR LUNA RECOMMENDED GENTLE LAXATIVES AND FLEET'S ENEMA AND TO REPEAT ABDOMINAL SERIOUS DC PLAN TO GO HOME WHEN STABLE. CM TO FOLLOW
[2023-02-16] MEDS ORDERED: fentaNYL citrate 0.05 MG/ML VIAL ONE (12:20)
[2023-02-16] MEDS ORDERED: MIDAZOLAM 5 MG/5 ML VIAL ONE (12:20)
[2023-02-16] MEDS ORDERED: diphenhydrAMINE 50 MG/ML VIAL ONE (12:20)
--- NOTE | 2023-02-16 12:30 | NUR ---
PT TAKEN OFF UNIT TO OR.
[2023-02-16] MEDS ORDERED: MIDAZOLAM 2 MG/2 ML VIAL IVP ONE (12:55)
[2023-02-16] MEDS ORDERED: fentaNYL citrate 0.05 MG/ML VIAL IVP ONE (12:55)
[2023-02-16] MEDS ORDERED: metroNIDAZOLE 500 MG/NS PREMIX 100 ML IV SCH (13:00)
--- NOTE | 2023-02-16 13:49 | NUR ---
02/16/23 RD INITIAL ASSESSMENT COMPLETED PLEASE REFER TO NUTRITION ASSESSMENT UNDER CARE ACTIVITY FOR ESTIMATED NUTRITIONAL NEEDS. 1. CONTINUE NPO DIET TOLERATED AND ADVANCE TO CCHO 60 GRAM AND CARDIAC DIET ONCE MEDICALLY APPROPRIATE. 2. RD TO FOLLOW-UP 3-5 DAYS, MODERATE RISK PAVAN BETH RD
--- NOTE | 2023-02-16 19:14 | NUR ---
ENDORSED PT TO CRUSHED STONE GRADER NURSE FOR CONTINUITY OF CARE. PT IS STABLE.
--- NOTE | 2023-02-16 19:15 | NUR ---
RECEIVED BEDSIDE REPORT FROM SUSANNE PHELAN FOR CONTINUITY OF CARE. PATIENT IS STABLE AND RESTING IN BED. A&OX4. DENIES PAIN. ON ROOM AIR WITH NO APPARENT S/SX OF ACUTE DISTRESS. RESPIRATIONS EVEN AND UNLABORED. IV SITE TO THE LEFT WRIST 20G IS PATENT/INTACT WITH NS INFUSING AT 40 ML/HR. MORNING SHIFT ENDORSED EGD WAS COMPLETED AND DIET HAS PROGRESSED TO CCHO. PATIENT IS BEDREST AND UTILIZES BEDSIDE URINAL TO VOID. POC AND WHITE COMMUNICATION BOARD UPDATED. ALL SAFETY MEASURES IN PLACE. BED IN LOW/LOCKED POSITION. CALL LIGHT WITHIN REACH. WILL CONTINUE TO MONITOR.
--- NOTE | 2023-02-16 20:00 | NUR ---
Patient's Plan of Care was discussed and reviewed with SUSANNE: ZIA
[2023-02-16] MEDS: bisacodyL 10 MG SUPP RC SCH (21:00)
--- NOTE | 2023-02-16 21:15 | NUR ---
PATIENT REFUSED SCHEDULED PER RECTAL MEDICATION. ATTEMPTED 3 TIMES. EDUCATED PATIENT ABOUT ADVERSE REACTION. PATIENT VERBALIZED UNDERSTANDING AND STATED, "I ALREADY WENT NUMBER 2 TODAY, I'M GOOD." WILL CONTINUE TO MONITOR FOR ANY CHANGE IN CONDITION. BLOOD SUGAR IS 132. COVERAGE NOT NEEDED PER MD ORDER. PT IS SOILED. CLEANED AND CHANGED PATIENT. TOLERATED WELL. PT STATED, "THANK YOU FOR CLEANING ME UP." DENIES PAIN. RESPIRATIONS EVEN AND UNLABORED WITH NO APPARENT S/SX OF ACUTE DISTRESS. WHITE COMMUNICATION BOARD UPDATED. ALL SAFETY MEASURES IN PLACE. CALL LIGHT WITHIN REACH. BED IN LOW/LOCKED POSITION. WILL CONTINUE TO MONITOR.
[2023-02-16] MEDS: ACETAMINOPHEN 325 MG TAB PO PRN (22:52)
--- NOTE | 2023-02-16 22:52 | NUR ---
ANSWERED CALL LIGHT. PATIENT IS C/O MILD ABD PAIN. ADMINISTERED PRN PO MEDICATION PER MD ORDER. TOLERATED WELL. WILL REASSESS IN AN HOUR. RESPIRATIONS EVEN AND UNLABORED WITH NO APPARENT S/SX OF ACUTE DISTRESS. WHITE COMMUNICATION BOARD UPDATED. ALL SAFETY MEASURES IN PLACE. CALL LIGHT WITHIN REACH. ENCOURAGED TO USE CALL LIGHT FOR ANY NEEDS/ASSISTANCE. BED IN LOW/LOCKED POSITION. WILL CONTINUE TO MONITOR.
--- NOTE | 2023-02-16 23:52 | NUR ---
REASSESSED PATIENT'S PAIN AND PATIENT VERBALIZED THAT "PAIN WENT AWAY." RESPIRATIONS EVEN AND UNLABORED WITH NO APPARENT S/SX OF ACUTE DISTRESS. ALL SAFETY MEASURES IN PLACE. CALL LIGHT WITHIN REACH. ENCOURAGED TO USE CALL LIGHT FOR ANY NEEDS/ASSISTANCE. BED IN LOW/LOCKED POSITION. WILL CONTINUE TO MONITOR.
--- NOTE | 2023-02-17 01:15 | NUR ---
READJUSTED AND REPOSITIONED PATIENT FOR COMFORT. TOLERATED WELL. PATIENT DENIES PAIN AT THIS TIME. RESPIRATIONS EVEN AND UNLABORED WITH NO APPARENT S/SX OF ACUTE DISTRESS. WHITE COMMUNICATION BOARD UPDATED. ALL SAFETY MEASURES IN PLACE. CALL LIGHT WITHIN REACH. ENCOURAGED TO USE CALL LIGHT FOR ANY NEEDS/ASSISTANCE. BED IN LOW/LOCKED POSITION. SIDE RAILS X2 UP. WILL CONTINUE TO MONITOR.
--- NOTE | 2023-02-17 03:10 | NUR ---
ROUNDED ON PATIENT. PATIENT ASLEEP. CHEST IS RISING AND FALLING SYMMETRICALLY. RESPIRATIONS EVEN AND UNLABORED WITH NO APPARENT S/SX OF ACUTE DISTRESS. WHITE COMMUNICATION BOARD UPDATED. ALL SAFETY MEASURES IN PLACE. CALL LIGHT WITHIN REACH. BED IN LOW/LOCKED POSITION. WILL CONTINUE TO MONITOR.
[2023-02-17 04:00] VITALS: BP 136/86; PULSE 88; RESP 18; TEMP 97.8; O2SAT 95
--- NOTE | 2023-02-17 05:00 | NUR ---
CLEANED AND CHANGED PATIENT INCLUDING BEDSHEET. TOLERATED WELL. PATIENT DENIES PAIN. RESPIRATIONS EVEN AND UNLABORED WITH NO APPARENT S/SX OF ACUTE DISTRESS. ALL NEEDS MET AT THIS TIME. WHITE COMMUNICATION BOARD UPDATED. ALL SAFETY MEASURES IN PLACE. CALL LIGHT WITHIN REACH. ENCOURAGED TO USE CALL LIGHT FOR ANY NEEDS/ASSISTANCE. BED IN LOW/LOCKED POSITION. SIDE RAILS X2 UP. WILL CONTINUE TO MONITOR.
[2023-02-17] MEDS: BLOOD GLUCOSE MONITORING 1 DEV DEV FS SCH ×2 (06:37→11:56)
[2023-02-17] MEDS: METOCLOPRAMIDE 10 MG/2 ML INJ VIAL IVP SCH ×2 (06:42→11:30)
[2023-02-17 07:00] LABS: BASOPHILS # (AUTO) 0.1 K/uL (0.00-0.22); BASOPHILS % (AUTO) 0.8 % (0.0-2.0); EOSINOPHILS # (AUTO) 0.1 K/uL (0-0.4); EOSINOPHILS % (AUTO) 1.1 % (0.0-4.0); HEMATOCRIT 34.6 % (36-52); HEMOGLOBIN 11.8 g/dL (12.0-18.0); LYMPHOCYTES # (AUTO) 1.1 K/uL (2.0-11.5); MEAN CORPUSCULAR HEMOGLOBIN 29 pg (27-31); MEAN CORPUSCULAR HGB CONC 34 g/dL (33-37); MEAN CORPUSCULAR VOLUME 85.2 fL (80-94); MONOCYTES # (AUTO) 0.7 K/uL (0.8-1.0); MONOCYTES % (AUTO) 7.9 % (1.7-9.3); NEUTROPHILS # (AUTO) 7.1 K/uL (1.8-7.7); NEUTROPHILS % (AUTO) 78.2 % (42.2-75.2); PLATELET COUNT (AUTO) 128 K/uL (140-450); RED BLOOD CELL COUNT(AUTO) 4.06 MIL/uL (4.20-6.10); RED CELL DISTRIBUTION WIDTH 13.1 % (11.6-13.7); WHITE BLOOD COUNT (AUTO) 9.1 K/uL (4.8-10.8)
--- NOTE | 2023-02-17 07:15 | NUR ---
ENDORSED PATIENT TO CHRISTY YEPEZ FOR CONTINUITY OF CARE. PATIENT IS STABLE.
--- NOTE | 2023-02-17 08:00 | NUR ---
RECEIVED PATIENT RESTING IN BED COMFORTABLY. NOT IN ANY FORM OF DISTRESS. SHIFT ASSESSMENT DONE AND DOCUMENTED. PATIENT HAD A BM. CLEANED AND CHANGED PATIENT. DR. WARD CAME IN AND SEEN THE PATIENT.
[2023-02-17] MEDS: SENNA 8.6 MG TAB PO SCH (09:00)
[2023-02-17] MEDS ORDERED: AZITHROMYCIN 250 MG TAB PO SCH (09:00)
[2023-02-17] MEDS ORDERED: OMEP40EC23 PO (10:56)
[2023-02-17] MEDS: INSULIN LISPRO SLIDING SCALE 100 UNITS/ML VIAL SUBQ PRN (12:01)
--- NOTE | 2023-02-17 13:15 | NUR ---
PATIENT DISCHARGED HOME ACCOMPANIED BY . IV ACCESS REMOVED. DISCHARGE INSTRUCTIONS GIVEN. VERBALIZED UNDERSTANDING. STABLE UPON DISCHARGE.
== END 2023-02-17 13:15 | disposition home or self-care (01) | DRG 378 ==
LOC: MED 05:24 → MTU 09:24
PROVIDERS: ADMIT Student in an Organized Health Care Education/Training Program; ATTEND Student in an Organized Health Care Education/Training Program
PROC: 0DJ08ZZ Inspection of Upper Intestinal Tract, Via Natural or Artificial Opening Endoscopic (ICD-10-PCS; principal; 2023-02-16 12:45)
DX: K29.71 Gastritis, unspecified, with bleeding (principal); K56.609 Unspecified intestinal obstruction, unspecified as to partial versus complete obstruction; E11.43 Type 2 diabetes mellitus with diabetic autonomic (poly)neuropathy; I10 Essential (primary) hypertension; E11.65 Type 2 diabetes mellitus with hyperglycemia; K59.00 Constipation, unspecified; I25.10 Atherosclerotic heart disease of native coronary artery without angina pectoris; K31.84 Gastroparesis; E78.5 Hyperlipidemia, unspecified; Z88.0 Allergy status to penicillin
CPT/HCPCS: 36415; 71045; 74022; 76705; 80053; 81001; 82948; 83605; 83690; 84484; 85025; 86886; 86900; 86901; 87040; 87081; 87086; 93005; 96361; 96365; 96367; 96375; 99291; C9113; J0696; J1200; J1815; J2250; J2405; J2765; J3010; J3490; J7060; Q0092

== ENCOUNTER 2023-06-30 08:31 | Outpatient (CLI) | payer OTHER ==
[~2023-06-30 08:31] MED LIST changes: +ATOR20TA40 PO; -DEC4 PO; +GABA300C55 PO; +LANTUS SUBQ; +OMEP40EC23 PO
[2023-06-30 08:59] LABS: BASOPHILS # (AUTO) 0.1 K/uL (0.00-0.22); BASOPHILS % (AUTO) 1.1 % (0.0-2.0); EOSINOPHILS # (AUTO) 0.2 K/uL (0-0.4); EOSINOPHILS % (AUTO) 1.4 % (0.0-4.0); HEMOGLOBIN 13.7 g/dL (12.0-18.0); LYMPHOCYTES % (AUTO) 15.3 % (20.5-51.1); MEAN CORPUSCULAR HEMOGLOBIN 29 pg (27-31); MEAN CORPUSCULAR HGB CONC 34 g/dL (33-37); MEAN CORPUSCULAR VOLUME 84.1 fL (80-94); MONOCYTES # (AUTO) 0.6 K/uL (0.8-1.0); MONOCYTES % (AUTO) 4.8 % (1.7-9.3); NEUTROPHILS # (AUTO) 10.1 K/uL (1.8-7.7); NEUTROPHILS % (AUTO) 77.4 % (42.2-75.2); PLATELET COUNT (AUTO) 225 K/uL (140-450); RED BLOOD CELL COUNT(AUTO) 4.75 MIL/uL (4.20-6.10); RED CELL DISTRIBUTION WIDTH 13.3 % (11.6-13.7); WHITE BLOOD COUNT (AUTO) 13.1 K/uL (4.8-10.8)
[2023-06-30 09:25] LABS: ALBUMIN 3.1 g/dL (3.4-5.0); CALCIUM 8.3 mg/dL (8.5-10.1); CARBON DIOXIDE 28.8 mmol/L (21-32); CREATININE 0.8 mg/dL (0.6-1.3); THYROID STIMULATING HORMONE 1.49 uIU/mL (0.34-3.74); TOTAL BILIRUBIN 0.6 mg/dL (0.0-1.0); TOTAL PROTEIN, SERUM 7.2 g/dL (6.4-8.2)
[2023-06-30 09:31] LABS: ANION GAP 12.3 (8-16); POTASSIUM 4.1 mmol/L (3.5-5.1)
[2023-06-30 09:50] LABS: CHOL/HDL RATIO 4.6 (1-4.5)
== END 2023-06-30 21:01 | disposition home or self-care (01) ==
LOC: MLB 08:31
PROVIDERS: ATTEND Family Medicine
DX: Z13.0 Encounter for screening for diseases of the blood and blood-forming organs and certain disorders involving the immune mechanism (principal); Z13.29 Encounter for screening for other suspected endocrine disorder; E78.2 Mixed hyperlipidemia; E11.9 Type 2 diabetes mellitus without complications; I10 Essential (primary) hypertension
CPT/HCPCS: 36415; 80053; 82043; 83036; 84443; 85025

== ENCOUNTER 2023-10-15 15:43 | Inpatient (IN) | payer OTHER ==
[~2023-10-15] VITALS: Ht 172.7 cm; Wt 72.6 kg
[~2023-10-15 15:43] MED LIST changes: -GLIP5TAB13 PO; +GLIP5TAB23 PO
[2023-10-15 15:47] VITALS: BP 192/114; PULSE 92; RESP 32; TEMP 97.4; O2SAT 81
[2023-10-15] MEDS: MORPHINE SULFATE 4 MG/ML SYR IVP ONE (16:17)
[2023-10-15 16:34] LABS: BASOPHILS # (AUTO) 0.2 K/uL (0.00-0.22); BASOPHILS % (AUTO) 2.2 % (0.0-2.0); EOSINOPHILS # (AUTO) 0.3 K/uL (0-0.4); EOSINOPHILS % (AUTO) 2.7 % (0.0-4.0); HEMATOCRIT 35.8 % (36-52); HEMOGLOBIN 12.5 g/dL (12.0-18.0); LYMPHOCYTES # (AUTO) 1.8 K/uL (2.0-11.5); LYMPHOCYTES % (AUTO) 19.6 % (20.5-51.1); MEAN CORPUSCULAR HEMOGLOBIN 30 pg (27-31); MEAN CORPUSCULAR HGB CONC 35 g/dL (33-37); MONOCYTES # (AUTO) 0.6 K/uL (0.8-1.0); MONOCYTES % (AUTO) 6.9 % (1.7-9.3); NEUTROPHILS # (AUTO) 6.4 K/uL (1.8-7.7); NEUTROPHILS % (AUTO) 68.6 % (42.2-75.2); PLATELET COUNT (AUTO) 169 K/uL (140-450); RED BLOOD CELL COUNT(AUTO) 4.16 MIL/uL (4.20-6.10); RED CELL DISTRIBUTION WIDTH 13.4 % (11.6-13.7); WHITE BLOOD COUNT (AUTO) 9.3 K/uL (4.8-10.8)
[2023-10-15 16:43] LABS: ANION GAP 10.1 (8-16); CALCIUM 8.5 mg/dL (8.5-10.1); CARBON DIOXIDE 27.5 mmol/L (21-32); CREATININE 0.9 mg/dL (0.6-1.3); POTASSIUM 4.6 mmol/L (3.5-5.1)
[2023-10-15 16:47] LABS: INR 1.06 (0.8-1.2); PARTIAL THROMBOPLASTIN TIME 24.7 secs (22-35.6); PROTHROMBIN TIME 11.1 secs (10.8-13.4)
[2023-10-15 16:52] LABS: ALANINE AMINOTRANSFERASE 16 U/L (12-78); ALKALINE PHOSPHATASE 93 U/L (50-136); ASPARTATE AMINOTRANSFERASE 19 U/L (15-37); BILIRUBIN,DIRECT 0.1 mg/dL (0.0-0.3); CREATINE KINASE, TOTAL 120 U/L (39-308); TOTAL BILIRUBIN 0.4 mg/dL (0.0-1.0); TOTAL PROTEIN, SERUM 7.8 g/dL (6.4-8.2)
[2023-10-15 16:53] LABS: FLU A ANTIGEN negative (NEGATIVE); FLU B ANTIGEN NEGATIVE (NEGATIVE)
[2023-10-15 16:54] LABS: LACTIC ACID 1.2 mmol/L (0.4-2.0)
[2023-10-15 17:11] LABS: BILIRUBIN,URINE NEGATIVE (NEGATIVE); BLOOD, URINE 2+ (NEGATIVE); COLOR,URINE YELLOW (YELLOW); LEUKOCYTE ESTERASE ,URINE NEGATIVE (NEGATIVE); NITRITE, URINE NEGATIVE (NEGATIVE); PROTEIN,URINE 3+ (NEGATIVE); UGLUCOSE TRACE (NEGATIVE); UROBILINOGEN,URINE 0.2 EU/dL (0.2 - 1)
[2023-10-15 17:21] LABS: APPEARANCE,URINE SLIGHTLY CLOUDY (CLEAR)
[2023-10-15 17:23] LABS: BACTERIA,URINE 2+ /HPF (None Seen)
[2023-10-15 17:24] LABS: MUCUS,URINE None Seen /LPF (None Seen); SQUAMOUS EPITHELIAL CELL,UR 0-3 (FEW) /LPF (0-3 (FEW))
[2023-10-15] MEDS: ASPIRIN 325 MG TAB PO ONE (18:40)
[2023-10-15] MEDS: HEPARIN PER PHARMACY MC ONE (18:55)
[2023-10-15] MEDS ORDERED: ONDANSETRON 4 MG/2 ML VIAL IVP PRN (19:20)
[2023-10-15] MEDS ORDERED: ACETAMINOPHEN 325 MG TAB PO PRN (19:20)
[2023-10-15 20:55] VITALS: PULSE 84; RESP 20; O2SAT 98
[2023-10-15 21:05] VITALS: PULSE 91
[2023-10-15] MEDS: hePARIN / DEXT 5% PREMIX 250 ML IV SCH (22:57)
[2023-10-16] VITALS (10 sets, daily range): BP systolic 138–165; BP diastolic 81–94; PULSE 78–113; RESP 19–20; TEMP 96.5–97; O2SAT 91–99
[2023-10-16 05:29] LABS: BASOPHILS # (AUTO) 0.2 K/uL (0.00-0.22); BASOPHILS % (AUTO) 2.2 % (0.0-2.0); EOSINOPHILS # (AUTO) 0.4 K/uL (0-0.4); HEMATOCRIT 35.7 % (36-52); HEMOGLOBIN 12.3 g/dL (12.0-18.0); LYMPHOCYTES % (AUTO) 20.8 % (20.5-51.1); MEAN CORPUSCULAR HEMOGLOBIN 30 pg (27-31); MEAN CORPUSCULAR HGB CONC 34 g/dL (33-37); MEAN CORPUSCULAR VOLUME 86.9 fL (80-94); MONOCYTES # (AUTO) 0.7 K/uL (0.8-1.0); MONOCYTES % (AUTO) 7.7 % (1.7-9.3); NEUTROPHILS # (AUTO) 6.3 K/uL (1.8-7.7); NEUTROPHILS % (AUTO) 65.3 % (42.2-75.2); PLATELET COUNT (AUTO) 150 K/uL (140-450); RED BLOOD CELL COUNT(AUTO) 4.11 MIL/uL (4.20-6.10); RED CELL DISTRIBUTION WIDTH 13.8 % (11.6-13.7); WHITE BLOOD COUNT (AUTO) 9.6 K/uL (4.8-10.8)
[2023-10-16 05:33] LABS: ANION GAP 10.4 (8-16); CALCIUM 8.4 mg/dL (8.5-10.1); CARBON DIOXIDE 26.9 mmol/L (21-32); CREATININE 0.9 mg/dL (0.6-1.3); POTASSIUM 4.3 mmol/L (3.5-5.1)
[2023-10-16 05:34] LABS: INR 1.15 (0.8-1.2)
[2023-10-16] MEDS ORDERED: HEPARIN PER PHARMACY MC PRN (05:50)
[2023-10-16] MEDS: LEVOFLOXACIN 500 MG/D5W PREMIX 100 ML IV SCH (12:57)
[2023-10-16] MEDS: HYDROcodone/APAP 5/325 MG 1 TAB TAB PO PRN (14:45)
[2023-10-17] VITALS (12 sets, daily range): BP systolic 142–152; BP diastolic 52–87; PULSE 71–96; RESP 16–20; TEMP 97.1–98.4; O2SAT 93–100
[2023-10-17 03:32] LABS: BASOPHILS # (AUTO) 0.1 K/uL (0.00-0.22); BASOPHILS % (AUTO) 1.1 % (0.0-2.0); EOSINOPHILS # (AUTO) 0.3 K/uL (0-0.4); EOSINOPHILS % (AUTO) 3.1 % (0.0-4.0); HEMATOCRIT 35.5 % (36-52); HEMOGLOBIN 12.4 g/dL (12.0-18.0); LYMPHOCYTES # (AUTO) 1.2 K/uL (2.0-11.5); LYMPHOCYTES % (AUTO) 13.8 % (20.5-51.1); MEAN CORPUSCULAR HEMOGLOBIN 30 pg (27-31); MEAN CORPUSCULAR HGB CONC 35 g/dL (33-37); MEAN CORPUSCULAR VOLUME 85.8 fL (80-94); MONOCYTES # (AUTO) 0.6 K/uL (0.8-1.0); MONOCYTES % (AUTO) 6.3 % (1.7-9.3); NEUTROPHILS # (AUTO) 6.6 K/uL (1.8-7.7); NEUTROPHILS % (AUTO) 75.7 % (42.2-75.2); PLATELET COUNT (AUTO) 158 K/uL (140-450); RED BLOOD CELL COUNT(AUTO) 4.14 MIL/uL (4.20-6.10); RED CELL DISTRIBUTION WIDTH 13.4 % (11.6-13.7); WHITE BLOOD COUNT (AUTO) 8.7 K/uL (4.8-10.8)
[2023-10-17] MEDS: ALBUTEROL 0.083% 2.5 MG/3 ML NEBU INH PRN (03:34)
[2023-10-17 03:52] LABS: ANION GAP 10.3 (8-16); CALCIUM 8.8 mg/dL (8.5-10.1); CARBON DIOXIDE 30.9 mmol/L (21-32); CREATININE 0.8 mg/dL (0.6-1.3); POTASSIUM 4.2 mmol/L (3.5-5.1)
[2023-10-17] MEDS ORDERED: POTASSIUM CHLORIDE 10 MEQ TABER PO PRN (15:45)
[2023-10-17] MEDS ORDERED: ALBUTEROL SULFATE/IPRATROPIU 3 ML SOL IH PRN (15:45)
[2023-10-17] MEDS ORDERED: MAG SULF 2000 MG/WATER PREMIX 50 ML IV PRN (15:45)
[2023-10-17] MEDS ORDERED: DEXTROSE 50% 50 ML SYR IVP PRN (15:55)
[2023-10-17] MEDS ORDERED: INSULIN LISPRO SLIDING SCALE 100 UNITS/ML VIAL SUBQ PRN (15:55)
[2023-10-17] MEDS: BLOOD GLUCOSE MONITORING 1 DEV DEV FS SCH (16:30)
[2023-10-17 16:33] LABS: CHOL/HDL RATIO 4.8 (1-4.5); FREE T4 (FREE THYROXINE) 1.26 ng/dL (0.76-1.46); THYROID STIMULATING HORMONE 3.66 uIU/mL (0.34-3.74)
[2023-10-17] MEDS: metFORMIN 500 MG TAB PO SCH (18:16)
[2023-10-17] MEDS: GABAPENTIN 300 MG CAP PO SCH (20:25)
[2023-10-17] MEDS: RIVAROXABAN 15 MG TAB PO SCH (20:30)
[2023-10-17] MEDS: ALBUTEROL SULFATE/IPRATROPIU 3 ML SOL IH SCH (20:37)
[2023-10-17] MEDS ORDERED: METFORMIN HCL 1000 MG PO SCH (21:00)
[2023-10-17] MEDS ORDERED: APIXABAN 2.5 MG TAB PO SCH (21:00)
[2023-10-18] VITALS: BP 116/74; PULSE 89; RESP 18; TEMP 97.6; O2SAT 97
[2023-10-18 04:00] VITALS: BP 143/89; PULSE 84; RESP 18; TEMP 97.5; O2SAT 95
[2023-10-18 05:19] LABS: BASOPHILS # (AUTO) 0.1 K/uL (0.00-0.22); BASOPHILS % (AUTO) 1.3 % (0.0-2.0); EOSINOPHILS # (AUTO) 0.3 K/uL (0-0.4); EOSINOPHILS % (AUTO) 4.2 % (0.0-4.0); HEMATOCRIT 33.5 % (36-52); HEMOGLOBIN 11.7 g/dL (12.0-18.0); LYMPHOCYTES # (AUTO) 1.6 K/uL (2.0-11.5); LYMPHOCYTES % (AUTO) 20.5 % (20.5-51.1); MEAN CORPUSCULAR HEMOGLOBIN 30 pg (27-31); MEAN CORPUSCULAR HGB CONC 35 g/dL (33-37); MEAN CORPUSCULAR VOLUME 86.3 fL (80-94); MONOCYTES # (AUTO) 0.8 K/uL (0.8-1.0); MONOCYTES % (AUTO) 9.8 % (1.7-9.3); NEUTROPHILS % (AUTO) 64.2 % (42.2-75.2); PLATELET COUNT (AUTO) 166 K/uL (140-450); RED BLOOD CELL COUNT(AUTO) 3.89 MIL/uL (4.20-6.10); RED CELL DISTRIBUTION WIDTH 13.5 % (11.6-13.7); WHITE BLOOD COUNT (AUTO) 7.8 K/uL (4.8-10.8)
[2023-10-18 05:46] LABS: ANION GAP 7.5 (8-16); CALCIUM 8.3 mg/dL (8.5-10.1); CARBON DIOXIDE 31.5 mmol/L (21-32); CREATININE 0.9 mg/dL (0.6-1.3)
[2023-10-18 06:04] LABS: MAGNESIUM 1.9 mg/dL (1.8-2.4); PHOSPHORUS 3.9 mg/dL (2.5-4.9)
[2023-10-18] MEDS: glipiZIDE 5 MG TAB PO SCH (06:48)
[2023-10-18 07:55] VITALS: PULSE 90; RESP 16; O2SAT 96
[2023-10-18 08:00] VITALS: BP 139/82; PULSE 80; PULSE 82; RESP 17; TEMP 97.8; O2SAT 98
[2023-10-18] MEDS: PANTOPRAZOLE 40 MG TABEC PO SCH (09:00)
[2023-10-18] MEDS ORDERED: NON-FORMULARY ITEM (Omeprazole* (Prilosec*) 1 CAP) PO SCH (09:00)
[2023-10-18] MEDS: INSULIN LANTUS 100 UNITS/ML 10 ML VIAL SUBQ SCH (09:00)
[2023-10-18] MEDS ORDERED: ATORVASTATIN 20 MG TAB PO SCH (09:00)
[2023-10-18] MEDS: ATORVASTATIN 20 MG TAB PO SCH (09:01)
[2023-10-18] MEDS: ASPIRIN 81 MG TAB.CHEW PO SCH (09:03)
[2023-10-18] MEDS ORDERED: RIVA15TA1 PO (11:07)
[2023-10-18] MEDS ORDERED: LEVO750T75 PO (11:07)
[2023-10-18] MEDS ORDERED: METF-346 PO (11:07)
[2023-10-18 12:00] VITALS: BP 134/80; PULSE 80; PULSE 85; RESP 18; TEMP 97; O2SAT 94
[2023-10-18 14:02] VITALS: PULSE 90; RESP 18; O2SAT 94
== END 2023-10-18 16:10 | disposition home health service (06) | DRG 175 ==
LOC: MED 15:43 → MMU 19:20 → MTU 19:54
DX: I26.93 Single subsegmental thrombotic pulmonary embolism without acute cor pulmonale (principal); I50.43 Acute on chronic combined systolic (congestive) and diastolic (congestive) heart failure; J18.9 Pneumonia, unspecified organism; J96.01 Acute respiratory failure with hypoxia; E87.1 Hypo-osmolality and hyponatremia; E44.0 Moderate protein-calorie malnutrition; R18.8 Other ascites; Z20.822 Contact with and (suspected) exposure to COVID-19; E11.621 Type 2 diabetes mellitus with foot ulcer; G62.9 Polyneuropathy, unspecified; I73.9 Peripheral vascular disease, unspecified; E78.5 Hyperlipidemia, unspecified; E11.40 Type 2 diabetes mellitus with diabetic neuropathy, unspecified; Z79.899 Other long term (current) drug therapy; Z68.24 Body mass index [BMI] 24.0-24.9, adult
CPT/HCPCS: 36415; 71045; 71275; 73630; 80048; 80076; 81001; 82550; 82948; 83036; 83605; 83735; 83880; 84100; 84439; 84443; 84484; 85025; 85610; 85730; 87040; 87081; 87086; 93005; 93925; 93970; 94640; 96374; 97163-GP; 97530; 99285; J1644; J1815; J1956; J2270; J7613; Q0092; Q9967

== ENCOUNTER 2023-11-30 16:52 | Inpatient (IN) | payer OTHER ==
[~2023-11-30] VITALS: Ht 172.7 cm; Wt 72.6 kg
[~2023-11-30 16:52] MED LIST changes: -AZIT250T3 PO; +LEVO750T75 PO; +METF-346 PO; +RIVA15TA1 PO
[2023-11-30 17:32] VITALS: BP 136/86; PULSE 88; RESP 17; TEMP 98; O2SAT 94
[2023-11-30] MEDS: NACL 0.9% 1,000 ML IV ONE (18:04)
[2023-11-30] MEDS: ONDANSETRON 4 MG/2 ML VIAL IVP ONE (18:04)
[2023-11-30] MEDS: MORPHINE SULFATE 4 MG/ML SYR IVP ONE (18:04)
[2023-11-30 18:49] LABS: BASOPHILS # (AUTO) 0.1 K/uL (0.00-0.22); BASOPHILS % (AUTO) 1.1 % (0.0-2.0); EOSINOPHILS # (AUTO) 0.2 K/uL (0-0.4); LYMPHOCYTES # (AUTO) 1.2 K/uL (2.0-11.5); LYMPHOCYTES % (AUTO) 14.7 % (20.5-51.1); MEAN CORPUSCULAR HEMOGLOBIN 30 pg (27-31); MEAN CORPUSCULAR HGB CONC 35 g/dL (33-37); MEAN CORPUSCULAR VOLUME 84.3 fL (80-94); MONOCYTES # (AUTO) 0.6 K/uL (0.8-1.0); MONOCYTES % (AUTO) 7.7 % (1.7-9.3); NEUTROPHILS # (AUTO) 6.2 K/uL (1.8-7.7); NEUTROPHILS % (AUTO) 74.5 % (42.2-75.2); PLATELET COUNT (AUTO) 164 K/uL (140-450); RED BLOOD CELL COUNT(AUTO) 4.03 MIL/uL (4.20-6.10); RED CELL DISTRIBUTION WIDTH 14.1 % (11.6-13.7); WHITE BLOOD COUNT (AUTO) 8.4 K/uL (4.8-10.8)
[2023-11-30 19:06] LABS: ANION GAP 10.7 (8-16); CALCIUM 8.4 mg/dL (8.5-10.1); CARBON DIOXIDE 28.7 mmol/L (21-32); CREATININE 0.9 mg/dL (0.6-1.3); POTASSIUM 4.4 mmol/L (3.5-5.1)
[2023-11-30 19:18] LABS: ALANINE AMINOTRANSFERASE 11 U/L (12-78); ALKALINE PHOSPHATASE 74 U/L (50-136); ASPARTATE AMINOTRANSFERASE 12 U/L (15-37); BILIRUBIN,DIRECT 0.1 mg/dL (0.0-0.3); LIPASE 54 U/L (16-77); PHOSPHORUS 3.2 mg/dL (2.5-4.9); TOTAL BILIRUBIN 0.7 mg/dL (0.0-1.0); TOTAL PROTEIN, SERUM 6.3 g/dL (6.4-8.2)
[2023-11-30 19:29] LABS: ACETONE, SERUM Negative (NEGATIVE)
[2023-11-30 19:41] VITALS: O2SAT 97
[2023-11-30 20:25] LABS: FLU A ANTIGEN negative (NEGATIVE); FLU B ANTIGEN NEGATIVE (NEGATIVE)
[2023-11-30] MEDS: ASPIRIN 81 MG TAB.CHEW PO ONE (21:40)
[2023-11-30] MEDS ORDERED: HEPARIN PER PHARMACY MC PRN ×2 (21:45→22:35)
[2023-11-30] MEDS ORDERED: hePARIN / DEXT 5% PREMIX 250 ML IV SCH (22:35)
[2023-11-30] MEDS ORDERED: POTASSIUM CHLORIDE 10 MEQ TABER PO PRN (22:35)
[2023-11-30] MEDS ORDERED: MAG SULF 2000 MG/WATER PREMIX 50 ML IV PRN (22:35)
[2023-11-30] MEDS ORDERED: ONDANSETRON 4 MG/2 ML VIAL IVP PRN (22:35)
[2023-11-30] MEDS ORDERED: ACETAMINOPHEN 325 MG TAB PO PRN (22:35)
[2023-11-30] MEDS ORDERED: HYDROcodone/APAP 7.5/325 MG 1 TAB PO PRN (22:35)
[2023-11-30 23:11] LABS: INR 1.16 (0.8-1.2); PARTIAL THROMBOPLASTIN TIME 28.6 secs (22-35.6); PROTHROMBIN TIME 12.1 secs (10.8-13.4)
[2023-11-30 23:32] LABS: CHOL/HDL RATIO 4.1 (1-4.5); FREE T4 (FREE THYROXINE) 1.26 ng/dL (0.76-1.46); THYROID STIMULATING HORMONE 1.89 uIU/mL (0.34-3.74)
[2023-12-01] VITALS (8 sets, daily range): BP systolic 136–156; BP diastolic 90–97; PULSE 85–89; RESP 18; TEMP 96.8–98.5; O2SAT 96–99
[2023-12-01] MEDS: hePARIN / DEXT 5% PREMIX 250 ML IV PRN (01:02)
[2023-12-01 04:53] LABS: APPEARANCE,URINE CLEAR (CLEAR); BILIRUBIN,URINE NEGATIVE (NEGATIVE); BLOOD, URINE 1+ (NEGATIVE); COLOR,URINE YELLOW (YELLOW); LEUKOCYTE ESTERASE ,URINE NEGATIVE (NEGATIVE); NITRITE, URINE NEGATIVE (NEGATIVE); PROTEIN,URINE 3+ (NEGATIVE); UGLUCOSE 3+ (NEGATIVE)
[2023-12-01 04:55] LABS: BACTERIA,URINE 10-30 (MOD) /HPF (None Seen); SQUAMOUS EPITHELIAL CELL,UR 0-3 (FEW) /LPF (0-3 (FEW)); WBC,URINE 0-5 /HPF (0-5)
[2023-12-01 04:56] LABS: MUCUS,URINE 1+ /LPF (None Seen)
[2023-12-01 07:23] LABS: BASOPHILS # (AUTO) 0.1 K/uL (0.00-0.22); BASOPHILS % (AUTO) 1.3 % (0.0-2.0); EOSINOPHILS # (AUTO) 0.3 K/uL (0-0.4); EOSINOPHILS % (AUTO) 3.9 % (0.0-4.0); HEMATOCRIT 34.3 % (36-52); HEMOGLOBIN 11.8 g/dL (12.0-18.0); LYMPHOCYTES # (AUTO) 1.7 K/uL (2.0-11.5); LYMPHOCYTES % (AUTO) 23.8 % (20.5-51.1); MEAN CORPUSCULAR HEMOGLOBIN 29 pg (27-31); MEAN CORPUSCULAR HGB CONC 34 g/dL (33-37); MEAN CORPUSCULAR VOLUME 85.1 fL (80-94); MONOCYTES # (AUTO) 0.6 K/uL (0.8-1.0); NEUTROPHILS # (AUTO) 4.4 K/uL (1.8-7.7); PLATELET COUNT (AUTO) 170 K/uL (140-450); RED BLOOD CELL COUNT(AUTO) 4.04 MIL/uL (4.20-6.10); RED CELL DISTRIBUTION WIDTH 14.4 % (11.6-13.7); WHITE BLOOD COUNT (AUTO) 7.1 K/uL (4.8-10.8)
[2023-12-01 07:37] LABS: ANION GAP 10.1 (8-16); CALCIUM 8.3 mg/dL (8.5-10.1); CARBON DIOXIDE 27.9 mmol/L (21-32); CREATININE 0.8 mg/dL (0.6-1.3)
[2023-12-01 07:39] LABS: INR 1.12 (0.8-1.2); PARTIAL THROMBOPLASTIN TIME 44.8 secs (22-35.6); PROTHROMBIN TIME 11.7 secs (10.8-13.4)
[2023-12-01 07:50] LABS: PHOSPHORUS 3.7 mg/dL (2.5-4.9)
[2023-12-01] MEDS: DOCUSATE SODIUM 100 MG GELCAP PO SCH (10:27)
[2023-12-01] MEDS: PANTOPRAZOLE 40 MG INJ VIAL IVP SCH (10:27)
[2023-12-01] MEDS ORDERED: DEXTROSE 50% 50 ML SYR IVP PRN ×2 (10:50→15:55)
[2023-12-01] MEDS: BLOOD GLUCOSE MONITORING 1 DEV DEV FS SCH (11:22)
[2023-12-01] MEDS ORDERED: INSULIN LISPRO SLIDING SCALE 100 UNITS/ML VIAL SUBQ PRN (15:55)
[2023-12-01] MEDS: INSULIN LISPRO SLIDING SCALE 100 UNITS/ML VIAL SUBQ PRN (16:21)
[2023-12-01] MEDS ORDERED: BLOOD GLUCOSE MONITORING 1 DEV DEV FS SCH (16:30)
[2023-12-01] MEDS: metFORMIN 500 MG TAB PO SCH (16:53)
[2023-12-01] MEDS: glipiZIDE 5 MG TAB PO SCH (16:54)
[2023-12-01] MEDS: GABAPENTIN 300 MG CAP PO SCH (21:15)
[2023-12-01] MEDS: RIVAROXABAN 15 MG TAB PO SCH (21:15)
[2023-12-02] VITALS: BP 90/61; PULSE 77; PULSE 79; RESP 18; TEMP 97.3; O2SAT 95
[2023-12-02 04:00] VITALS: BP 143/90; PULSE 84; PULSE 88; RESP 18; TEMP 97; O2SAT 96
[2023-12-02 07:28] LABS: PHOSPHORUS 4.5 mg/dL (2.5-4.9)
[2023-12-02 08:00] VITALS: BP 161/94; PULSE 88; PULSE 98; PULSE 99; RESP 18; TEMP 97.8; O2SAT 98; O2SAT 99
[2023-12-02] MEDS: ATORVASTATIN 20 MG TAB PO SCH (08:26)
[2023-12-02] MEDS: ASPIRIN 81 MG TAB.CHEW PO SCH (08:27)
[2023-12-02] MEDS ORDERED: NON-FORMULARY ITEM (Omeprazole* (Prilosec*) 1 CAP) PO SCH (09:00)
[2023-12-02] MEDS: INSULIN LANTUS 100 UNITS/ML 10 ML VIAL SUBQ SCH (09:00)
[2023-12-02 10:00] VITALS: BP 156/95; PULSE 93; RESP 18; TEMP 97.2; O2SAT 98
[2023-12-02] MEDS: lisinopriL 20 MG TAB PO SCH (10:09)
[2023-12-02 12:00] VITALS: BP 112/69; PULSE 82; PULSE 83; RESP 18; TEMP 98.1; O2SAT 97
[2023-12-02 16:00] VITALS: BP 134/71; PULSE 89; PULSE 95; RESP 18; TEMP 97.5; O2SAT 97
[2023-12-02] MEDS ORDERED: LISI20TA29 PO (18:53)
[2023-12-03] MEDS ORDERED: lisinopriL 20 MG TAB PO SCH (09:00)
== END 2023-12-02 20:50 | disposition home or self-care (01) | DRG 391 ==
LOC: MED 16:52 → MTU 21:52 → MMU 12-01 10:11
DX: R10.13 Epigastric pain (principal); I21.A1 Myocardial infarction type 2; E44.1 Mild protein-calorie malnutrition; E87.1 Hypo-osmolality and hyponatremia; E11.40 Type 2 diabetes mellitus with diabetic neuropathy, unspecified; E78.5 Hyperlipidemia, unspecified; Z20.822 Contact with and (suspected) exposure to COVID-19; I10 Essential (primary) hypertension; Z88.0 Allergy status to penicillin; Z79.899 Other long term (current) drug therapy; Z79.82 Long term (current) use of aspirin; Z79.84 Long term (current) use of oral hypoglycemic drugs; Z79.4 Long term (current) use of insulin; Z68.24 Body mass index [BMI] 24.0-24.9, adult
CPT/HCPCS: 36415; 71045; 76604; 80048; 80076; 81001; 82009; 82140; 82150; 82803; 82948; 83036; 83690; 83735; 83880; 84100; 84439; 84443; 84484; 85025; 85610; 85730; 87040; 87081; 93005; 93308; 93925; 93970; 96374; 96375; 99285; C9113; J1644; J1815; J2270; J2405; Q0092

== ENCOUNTER 2023-12-28 22:00 | Inpatient (IN) | payer OTHER ==
[~2023-12-28] VITALS: Ht 172.7 cm; Wt 71.7 kg
[~2023-12-28 22:00] MED LIST changes: -ATOR20TA40 PO; -LEVO750T75 PO; +LISI20TA29 PO; -METF-1253 PO
[2023-12-28 22:05] VITALS: BP 164/92; PULSE 97; RESP 16; TEMP 96.9; O2SAT 98
[2023-12-28 22:42] LABS: BASOPHILS # (AUTO) 0.1 K/uL (0.00-0.22); EOSINOPHILS # (AUTO) 0.1 K/uL (0-0.4); EOSINOPHILS % (AUTO) 0.6 % (0.0-4.0); HEMATOCRIT 33.7 % (36-52); HEMOGLOBIN 11.3 g/dL (12.0-18.0); LYMPHOCYTES # (AUTO) 1.1 K/uL (2.0-11.5); LYMPHOCYTES % (AUTO) 8.1 % (20.5-51.1); MEAN CORPUSCULAR HEMOGLOBIN 29 pg (27-31); MEAN CORPUSCULAR HGB CONC 34 g/dL (33-37); MEAN CORPUSCULAR VOLUME 85.9 fL (80-94); MONOCYTES # (AUTO) 0.8 K/uL (0.8-1.0); MONOCYTES % (AUTO) 5.9 % (1.7-9.3); NEUTROPHILS # (AUTO) 11.1 K/uL (1.8-7.7); NEUTROPHILS % (AUTO) 84.4 % (42.2-75.2); PLATELET COUNT (AUTO) 178 K/uL (140-450); RED BLOOD CELL COUNT(AUTO) 3.93 MIL/uL (4.20-6.10); RED CELL DISTRIBUTION WIDTH 14.6 % (11.6-13.7); WHITE BLOOD COUNT (AUTO) 13.1 K/uL (4.8-10.8)
[2023-12-28 22:52] LABS: ALBUMIN 2.9 g/dL (3.4-5.0); ANION GAP 13.7 (8-16); CALCIUM 8.6 mg/dL (8.5-10.1); CARBON DIOXIDE 25.6 mmol/L (21-32); CREATININE 0.9 mg/dL (0.6-1.3); POTASSIUM 5.3 mmol/L (3.5-5.1); TOTAL BILIRUBIN 0.8 mg/dL (0.0-1.0)
[2023-12-28] MEDS: ONDANSETRON 4 MG/2 ML VIAL IVP ONE (23:50)
[2023-12-28] MEDS: MORPHINE SULFATE 2 MG/ML SYR IVP STA (23:51)
[2023-12-28] MEDS: NACL 0.9% 1,000 ML IV ONE (23:52)
[2023-12-29] VITALS (7 sets, daily range): BP systolic 120–135; BP diastolic 70–87; PULSE 79–84; RESP 15–18; TEMP 97.9–98.1; O2SAT 93–99
[2023-12-29 00:11] LABS: APPEARANCE,URINE CLEAR (CLEAR); BILIRUBIN,URINE NEGATIVE (NEGATIVE); BLOOD, URINE 2+ (NEGATIVE); COLOR,URINE YELLOW (YELLOW); LEUKOCYTE ESTERASE ,URINE NEGATIVE (NEGATIVE); NITRITE, URINE NEGATIVE (NEGATIVE); PROTEIN,URINE 3+ (NEGATIVE); UGLUCOSE TRACE (NEGATIVE); UROBILINOGEN,URINE 0.2 EU/dL (0.2 - 1)
[2023-12-29 00:16] LABS: BACTERIA,URINE >30 (MANY) /HPF (None Seen); MUCUS,URINE 1+ /LPF (None Seen); RBC,URINE TOO NUMEROUS TO COUN /HPF (0-5); SQUAMOUS EPITHELIAL CELL,UR 0-3 (FEW) /LPF (0-3 (FEW)); WBC,URINE 0-5 /HPF (0-5)
[2023-12-29 00:29] LABS: AMPHETAMINE, URINE NEGATIVE ng/ml (NEG <=1000); BARBITURATE, URINE NEGATIVE ng/ml (NEG <=200); BENZODIAZEPINE, URINE NEGATIVE ng/mL (NEG <=200); CANNABINOID, URINE NEGATIVE ng/mL (NEG <=50); COCAINE, URINE NEGATIVE ng/mL (NEG <=300); OPIATE, URINE NEGATIVE ng/mL (NEG <=2000); PHENCYCLIDINE SCREEN,URINE NEGATIVE ng/mL (NEG <=25)
[2023-12-29] MEDS: MORPHINE SULFATE 2 MG/ML SYR IVP STA (03:20)
[2023-12-29] MEDS: SODIUM ZIRCONIUM CYCLOSILICATE 10 GM POWD.PACK PO ONE (03:24)
[2023-12-29] MEDS ORDERED: DOXYCYCLINE 100 MG VIAL IV ONE (06:59)
[2023-12-29] MEDS: DOXYCYCLINE 100 MG in DEXTROSE 5% 100 ML IV STA (07:12)
[2023-12-29 07:24] LABS: LACTIC ACID 1.1 mmol/L (0.4-2.0)
[2023-12-29] MEDS ORDERED: ceFAZolin 1,000 MG VIAL ONE (09:55)
[2023-12-29] MEDS ORDERED: ONDANSETRON 4 MG/2 ML VIAL IVP PRN (14:05)
[2023-12-29] MEDS ORDERED: MAG SULF 2000 MG/WATER PREMIX 50 ML IV PRN (14:05)
[2023-12-29] MEDS ORDERED: INSULIN LISPRO SLIDING SCALE 100 UNITS/ML VIAL SUBQ PRN (14:05)
[2023-12-29] MEDS ORDERED: POTASSIUM CHLORIDE 10 MEQ TABER PO PRN (14:05)
[2023-12-29] MEDS ORDERED: DEXTROSE 50% 50 ML SYR IVP PRN (14:05)
[2023-12-29] MEDS ORDERED: ACETAMINOPHEN 325 MG TAB PO PRN (14:05)
[2023-12-29] MEDS: NACL 0.9% 1,000 ML IV SCH (14:05)
[2023-12-29] MEDS: metFORMIN 500 MG TAB ONE ×2 (15:46→16:46)
[2023-12-29 15:49] LABS: BASOPHILS # (AUTO) 0.1 K/uL (0.00-0.22); BASOPHILS % (AUTO) 1.2 % (0.0-2.0); EOSINOPHILS # (AUTO) 0.2 K/uL (0-0.4); HEMATOCRIT 28.4 % (36-52); HEMOGLOBIN 9.9 g/dL (12.0-18.0); LYMPHOCYTES % (AUTO) 12.4 % (20.5-51.1); MEAN CORPUSCULAR HEMOGLOBIN 30 pg (27-31); MEAN CORPUSCULAR HGB CONC 35 g/dL (33-37); MEAN CORPUSCULAR VOLUME 85.3 fL (80-94); MONOCYTES # (AUTO) 0.7 K/uL (0.8-1.0); MONOCYTES % (AUTO) 8.4 % (1.7-9.3); PLATELET COUNT (AUTO) 183 K/uL (140-450); RED BLOOD CELL COUNT(AUTO) 3.33 MIL/uL (4.20-6.10); RED CELL DISTRIBUTION WIDTH 14.7 % (11.6-13.7); WHITE BLOOD COUNT (AUTO) 8.1 K/uL (4.8-10.8)
[2023-12-29 16:17] LABS: INR 1.37 (0.8-1.2); PARTIAL THROMBOPLASTIN TIME 38.6 secs (22-35.6); PROTHROMBIN TIME 14.2 secs (10.8-13.4)
[2023-12-29 16:21] LABS: LACTIC ACID 0.6 mmol/L (0.4-2.0)
[2023-12-29 16:24] LABS: ANION GAP 9.7 (8-16); CALCIUM 8.1 mg/dL (8.5-10.1); CARBON DIOXIDE 28.8 mmol/L (21-32); POTASSIUM 4.5 mmol/L (3.5-5.1)
[2023-12-29 16:28] LABS: AMYLASE 33 U/L (25-115); CHOLESTEROL 151 mg/dL (<200); FREE T4 (FREE THYROXINE) 1.19 ng/dL (0.76-1.46); HDL CHOLESTEROL 38 mg/dL (40-60); LDL (CALC) 97 mg/dL (60-100); LIPASE 22 U/L (16-77); MAGNESIUM 2.3 mg/dL (1.8-2.4); THYROID STIMULATING HORMONE 1.77 uIU/mL (0.34-3.74); TRIGLYCERIDES 83 mg/dL (30-150)
[2023-12-29] MEDS: glipiZIDE 5 MG TAB PO SCH (16:45)
[2023-12-29] MEDS: RIVAROXABAN 10 MG TAB PO SCH (16:53)
[2023-12-29] MEDS: BLOOD GLUCOSE MONITORING 1 DEV DEV FS SCH (16:54)
[2023-12-29] MEDS: metFORMIN 500 MG TAB PO SCH (16:55)
[2023-12-29] MEDS ORDERED: HEPARIN PER PHARMACY MC PRN (20:05)
[2023-12-29] MEDS: GABAPENTIN 300 MG CAP PO SCH (20:25)
[2023-12-29] MEDS: DOCUSATE SODIUM 100 MG GELCAP PO SCH (20:25)
[2023-12-29] MEDS ORDERED: RIVAROXABAN 15 MG TAB PO SCH (21:00)
[2023-12-30] VITALS: BP 128/74; PULSE 80; RESP 18; TEMP 98; O2SAT 94
[2023-12-30 04:00] VITALS: BP 134/71; PULSE 80; PULSE 87; RESP 18; TEMP 98.2; O2SAT 94
[2023-12-30] MEDS: hePARIN / DEXT 5% PREMIX 250 ML IV SCH (04:03)
[2023-12-30 06:40] LABS: BASOPHILS # (AUTO) 0.1 K/uL (0.00-0.22); BASOPHILS % (AUTO) 1.2 % (0.0-2.0); EOSINOPHILS # (AUTO) 0.4 K/uL (0-0.4); EOSINOPHILS % (AUTO) 5.4 % (0.0-4.0); HEMATOCRIT 31.7 % (36-52); HEMOGLOBIN 10.8 g/dL (12.0-18.0); LYMPHOCYTES # (AUTO) 1.2 K/uL (2.0-11.5); LYMPHOCYTES % (AUTO) 15.2 % (20.5-51.1); MEAN CORPUSCULAR HEMOGLOBIN 29 pg (27-31); MEAN CORPUSCULAR HGB CONC 34 g/dL (33-37); MEAN CORPUSCULAR VOLUME 86.2 fL (80-94); MONOCYTES # (AUTO) 0.7 K/uL (0.8-1.0); MONOCYTES % (AUTO) 8.7 % (1.7-9.3); NEUTROPHILS # (AUTO) 5.6 K/uL (1.8-7.7); NEUTROPHILS % (AUTO) 69.5 % (42.2-75.2); PLATELET COUNT (AUTO) 187 K/uL (140-450); RED BLOOD CELL COUNT(AUTO) 3.68 MIL/uL (4.20-6.10); RED CELL DISTRIBUTION WIDTH 14.5 % (11.6-13.7)
[2023-12-30 06:59] LABS: MAGNESIUM 2.3 mg/dL (1.8-2.4); PHOSPHORUS 3.9 mg/dL (2.5-4.9)
[2023-12-30 07:08] LABS: ANION GAP 9.7 (8-16); CALCIUM 8.3 mg/dL (8.5-10.1); CARBON DIOXIDE 28.5 mmol/L (21-32); POTASSIUM 4.2 mmol/L (3.5-5.1)
[2023-12-30 08:00] VITALS: BP 137/87; PULSE 87; RESP 15; RESP 18; TEMP 97.9; O2SAT 87; O2SAT 93
[2023-12-30] MEDS: lisinopriL 20 MG TAB PO SCH (08:35)
[2023-12-30] MEDS: PANTOPRAZOLE 40 MG INJ VIAL IVP SCH (08:35)
[2023-12-30] MEDS: ASPIRIN 81 MG TAB.CHEW PO SCH (08:36)
[2023-12-30] MEDS: ATORVASTATIN 20 MG TAB PO SCH (08:36)
[2023-12-30] MEDS ORDERED: NON-FORMULARY ITEM (Omeprazole* (Prilosec*) 1 CAP) PO SCH (09:00)
[2023-12-30] MEDS: INSULIN LANTUS 100 UNITS/ML 10 ML VIAL SUBQ SCH (09:00)
[2023-12-30 11:05] LABS: AMPHETAMINE, URINE NEGATIVE ng/ml (NEG <=1000); BARBITURATE, URINE NEGATIVE ng/ml (NEG <=200); BENZODIAZEPINE, URINE NEGATIVE ng/mL (NEG <=200); CANNABINOID, URINE NEGATIVE ng/mL (NEG <=50); COCAINE, URINE NEGATIVE ng/mL (NEG <=300); OPIATE, URINE POSITIVE ng/mL (NEG <=2000); PHENCYCLIDINE SCREEN,URINE NEGATIVE ng/mL (NEG <=25)
[2023-12-30 12:00] VITALS: BP 144/87; PULSE 85; RESP 18; TEMP 98.6; O2SAT 99
[2023-12-30 16:00] VITALS: BP 122/76; PULSE 84; RESP 19; TEMP 98.1; O2SAT 98
[2023-12-30 20:00] VITALS: BP 156/92; PULSE 86; PULSE 92; RESP 18; TEMP 98.1; O2SAT 94
[2023-12-31] VITALS: BP 140/89; PULSE 101; PULSE 104; RESP 18; TEMP 98; O2SAT 96
[2023-12-31] MEDS: HYDROcodone/APAP 7.5/325 MG 1 TAB PO PRN (00:04)
[2023-12-31 04:00] VITALS: BP 136/79; PULSE 88; PULSE 90; RESP 18; TEMP 97.9; O2SAT 93
[2023-12-31 06:17] LABS: BASOPHILS % (AUTO) 0.2 % (0.0-2.0); EOSINOPHILS # (AUTO) 0.3 K/uL (0-0.4); EOSINOPHILS % (AUTO) 4.6 % (0.0-4.0); HEMATOCRIT 29.6 % (36-52); LYMPHOCYTES # (AUTO) 1.4 K/uL (2.0-11.5); LYMPHOCYTES % (AUTO) 20.2 % (20.5-51.1); MEAN CORPUSCULAR HEMOGLOBIN 29 pg (27-31); MEAN CORPUSCULAR HGB CONC 34 g/dL (33-37); MEAN CORPUSCULAR VOLUME 85.6 fL (80-94); MONOCYTES # (AUTO) 0.6 K/uL (0.8-1.0); MONOCYTES % (AUTO) 8.9 % (1.7-9.3); NEUTROPHILS # (AUTO) 4.7 K/uL (1.8-7.7); NEUTROPHILS % (AUTO) 66.1 % (42.2-75.2); PLATELET COUNT (AUTO) 195 K/uL (140-450); RED BLOOD CELL COUNT(AUTO) 3.46 MIL/uL (4.20-6.10); RED CELL DISTRIBUTION WIDTH 14.5 % (11.6-13.7)
[2023-12-31 06:27] LABS: ANION GAP 8.9 (8-16); CALCIUM 8.3 mg/dL (8.5-10.1); CARBON DIOXIDE 29.1 mmol/L (21-32); CREATININE 1.1 mg/dL (0.6-1.3)
[2023-12-31 06:38] LABS: MAGNESIUM 2.3 mg/dL (1.8-2.4); PHOSPHORUS 3.6 mg/dL (2.5-4.9)
[2023-12-31 08:00] VITALS: BP 142/88; PULSE 83; RESP 18; TEMP 97.1; O2SAT 94; O2SAT 98
[2023-12-31 12:00] VITALS: BP 140/80; PULSE 83; RESP 18; TEMP 97.8; O2SAT 98
[2023-12-31 16:00] VITALS: BP 146/88; PULSE 86; PULSE 87; RESP 18; TEMP 97.8; O2SAT 98
[2023-12-31] MEDS ORDERED: LACT1TAB34 PO (16:18)
[2023-12-31] MEDS ORDERED: RIVA20TA PO (16:18)
[2023-12-31] MEDS ORDERED: CEPH-588 PO (16:18)
[2023-12-31 16:29] VITALS: BP 142/88; PULSE 83; RESP 18; TEMP 97.8
== END 2023-12-31 17:51 | disposition home or self-care (01) | DRG 871 ==
LOC: MED 22:00 → MTU 12-29 08:10
DX: A41.9 Sepsis, unspecified organism (principal); I21.A1 Myocardial infarction type 2; J96.00 Acute respiratory failure, unspecified whether with hypoxia or hypercapnia; E87.1 Hypo-osmolality and hyponatremia; E44.0 Moderate protein-calorie malnutrition; E87.5 Hyperkalemia; E11.40 Type 2 diabetes mellitus with diabetic neuropathy, unspecified; E78.5 Hyperlipidemia, unspecified; E86.0 Dehydration; E11.51 Type 2 diabetes mellitus with diabetic peripheral angiopathy without gangrene; Z89.511 Acquired absence of right leg below knee; Z68.24 Body mass index [BMI] 24.0-24.9, adult; Z79.899 Other long term (current) drug therapy
CPT/HCPCS: 36415; 71045; 80048; 80053; 80305; 81001; 82140; 82150; 82948; 83036; 83605; 83690; 83735; 83880; 84100; 84439; 84443; 84484; 85025; 85610; 85730; 87040; 87081; 87086; 93005; 93925; 93970; 97110; 97112; 97163-GP; 97530; C9113; J0690; J1644; J1815; J2270; J2405; J3490; J7060; Q0092

== ENCOUNTER 2024-01-26 15:32 | Emergency (ER) | payer OTHER ==
[~2024-01-26] VITALS: Ht 172.7 cm; Wt 68.0 kg
[~2024-01-26 15:32] MED LIST changes: +CEPH-588 PO; +LACT1TAB34 PO; -RIVA15TA1 PO; +RIVA20TA PO
[2024-01-26 15:39] VITALS: BP 95/58; PULSE 92; RESP 18; TEMP 98.1; O2SAT 98
[2024-01-26 16:10] VITALS: BP 95/58; PULSE 92; RESP 18; TEMP 98.1; O2SAT 98
== END 2024-01-26 16:14 | disposition home or self-care (01) ==
LOC: MED 15:32
DX: I10 Essential (primary) hypertension (principal); E11.9 Type 2 diabetes mellitus without complications; Z88.0 Allergy status to penicillin; Z79.4 Long term (current) use of insulin; Z79.899 Other long term (current) drug therapy; Z98.890 Other specified postprocedural states
CPT/HCPCS: 99281

== ENCOUNTER 2024-04-30 15:37 | Outpatient (CLI) | payer OTHER | END 2024-04-30 22:20 | disposition home or self-care (01) | LOC: MCT 15:37 | PROVIDERS: ATTEND Student in an Organized Health Care Education/Training Program | DX: I26.99 Other pulmonary embolism without acute cor pulmonale (principal); R06.02 Shortness of breath; J90 Pleural effusion, not elsewhere classified; I25.10 Atherosclerotic heart disease of native coronary artery without angina pectoris; I77.810 Thoracic aortic ectasia; J98.11 Atelectasis; M47.814 Spondylosis without myelopathy or radiculopathy, thoracic region | CPT/HCPCS: 71250 ==